=== PATIENT | male | born 1980 ===

== ENCOUNTER 2017-09-17 10:17 | Emergency (ER) | payer MEDICAID ==
[2017-09-17 10:49] VITALS: BP 117/82; PULSE 77; RESP 16; TEMP 97; O2SAT 100
--- NOTE | 2017-09-17 10:52 | ED PDOC ---
HPI: CCC, URI, Sore Throat Time Seen by Provider: 09/17/17 10:46 Chief Complaint (Nursing): Cough, Cold, Congestion History Per: Patient (Fever sore throat and cough x 2 days. No SOB) Onset/Duration Of Symptoms: Days (2) Current Symptoms Are (Timing): Still Present Location Of Pain: Throat Associated Symptoms: Fever, Sore Throat, Cough Severity: Moderate Past Medical History Vital Signs: Last Vital Signs Temp 97 F L 09/17/17 10:47 Pulse 77 09/17/17 10:47 Resp 16 09/17/17 10:47 BP 117/82 09/17/17 10:47 Pulse Ox 100 09/17/17 10:52 - Medical History PMH: Seizures - Family History Family History: States: Unknown Family Hx - Home Medications Home Medications: Ambulatory Orders Medication Instructions Recorded Azithromycin [Zithromax] 250 mg PO DAILY #6 tab 09/17/17 - Allergies Allergies/Adverse Reactions: Allergies Allergy/AdvReac Type Severity Reaction Status Date / Time No Known Allergies Allergy Verified 09/17/17 10:47 Review of Systems Constitutional: Positive for: Fever ENT: Positive for: Throat Pain Respiratory: Positive for: Cough Gastrointestinal: Negative for: Nausea, Vomiting Physical Exam - Physical Exam Appears: Positive for: Non-toxic, No Acute Distress Skin: Positive for: Normal Color, Warm, DRY ENT: Positive for: Pharyngeal Erythema. Negative for: Tonsillar Exudate Neck: Positive for: Normal, Painless ROM Cardiovascular/Chest: Positive for: Regular Rate, Rhythm Respiratory: Positive for: CNT, Normal Breath Sounds Extremity: Positive for: Normal ROM Neurologic/Psych: Positive for: Alert, Oriented - ECG O2 Sat by Pulse Oximetry: 100 Disposition - Clinical Impression Clinical Impression: Bronchitis - Patient ED Disposition Is Patient to be Admitted: No Counseled Patient/Family Regarding: Studies Performed, Diagnosis, Need For Followup, Rx Given - Disposition Referrals: [facility] [Outside] Disposition: Routine/Home Disposition Time: 11:45 Condition: FAIR Prescriptions: Azithromycin [Zithromax] 250 mg PO DAILY #6 tab Instructions: Acute Bronchitis (ED) Forms: [employer] (Occitan)
--- NOTE | 2017-09-17 11:22 | RAD ---
HISTORY: cough COMPARISON: None available. TECHNIQUE: Chest PA and lateral FINDINGS: LUNGS: No focal consolidation. Please note that chest x-ray has limited sensitivity for the detection of pulmonary masses. PLEURA: No significant pleural effusion identified. No definite pneumothorax . CARDIOVASCULAR: The cardiomediastinal silhouette appears within normal limits of size. OSSEOUS STRUCTURES: No acute osseous abnormality identified. VISUALIZED UPPER ABDOMEN: Unremarkable. OTHER FINDINGS: None. IMPRESSION: No focal consolidation, significant pleural effusion, or definite pneumothorax identified.
== END 2017-09-17 12:11 | disposition home or self-care (01) ==
LOC: H.ER 10:17
DX: J40 Bronchitis, not specified as acute or chronic (principal)

== ENCOUNTER 2018-04-05 21:49 | Emergency (ER) | payer MEDICAID ==
[2018-04-05 21:57] VITALS: BP 129/84; PULSE 71; RESP 16; TEMP 98.3; O2SAT 100
[2018-04-05] MEDS ORDERED: Tdap Vaccine 0.5 ml Vial (10-64 yrs) IM ONE ×2 (22:16→22:22)
[2018-04-05] MEDS ORDERED: Absorbable Gelatin Sponge Size 12-7 TP STA (22:16)
--- NOTE | 2018-04-05 22:16 | ED PDOC ---
HPI: Wound Care - HPI Time Seen by Provider: 04/05/18 21:58 Chief Complaint (Nursing): Finger,Hand,&Wrist Chief Complaint (Provider): skin avulsion History Per: Patient Additional Complaint(s): 37 year old right hand dominant male presents with avulsion laceration to right index finger. Patient states he was cutting onions with knife and accidentally cut right index finger. He is not sure of last tetanus. Patient has mild throbbing pain to affected area with no numbness or tingling to affected area. PMD: none Past Medical History Reviewed: Historical Data, Nursing Documentation, Vital Signs Vital Signs: Last Vital Signs Temp 98.3 F 04/05/18 21:55 Pulse 71 04/05/18 21:55 Resp 16 04/05/18 21:55 BP 129/84 04/05/18 21:55 Pulse Ox 100 04/05/18 21:55 - Medical History PMH: Seizures - Surgical History Surgical History: No Surg Hx - Family History Family History: States: No Known Family Hx - Living Arrangements Living Arrangements: With Family - Social History Current smoker - smoking cessation education provided: No Alcohol: None Drugs: Denies - Immunization History Hx Tetanus Toxoid Vaccination: No (not sure of last booster) - Home Medications Home Medications: Ambulatory Orders Medication Instructions Recorded Azithromycin [Zithromax] 250 mg PO DAILY #6 tab 09/17/17 - Allergies Allergies/Adverse Reactions: Allergies Allergy/AdvReac Type Severity Reaction Status Date / Time No Known Allergies Allergy Verified 09/17/17 10:47 Review of Systems ROS Statement: Except As Marked, All Systems Reviewed And Found Negative Musculoskeletal: Positive for: Other (right index finger laceration) Physical Exam - Reviewed Nursing Documentation Reviewed: Yes Vital Signs Reviewed: Yes - Physical Exam Appears: Positive for: Well, Non-toxic, No Acute Distress Skin: Negative for: Rash Eye Exam: Positive for: Normal appearance Extremity: Positive for: Other (1 cm avulsion laceration noted to right index finger, distal aspect of the fingernail is avulsed with exposure of the nailbed , no bony exposure, moderate active bleeding, normal distal sensation, full range of motion of affected digit) Neurologic/Psych: Positive for: Alert, Oriented - ECG O2 Sat by Pulse Oximetry: 100 Pulse Ox Interpretation: Normal Medical Decision Making Medical Decision Makin37 year old with avulsion to finger Plan: Adacel IM PO motrin Procedure Note: wound cleansed with normal saline, gel foam was applied overlying wound and secured with sterile gauze, N/V intact s/p placement. Procedure was tolerated well by patient with no complications. Patient was given wound care instructions given. Advised tylenol or advil prn pain. Disposition - Clinical Impression Clinical Impression: Skin avulsion, Nail avulsion, Requires a booster tetanus - Patient ED Disposition Is Patient to be Admitted: No Counseled Patient/Family Regarding: Diagnosis, Need For Followup, Rx Given - Disposition Referrals: [facility] [Outside] Disposition: Routine/Home Disposition Time: 23:01 Condition: STABLE Additional Instructions: Keep bandage in place for 2 days, after 2 days remove bandage and foam. Wound will continue to heal from there. Over the counter advil or tylenol for pain. Follow up with clinic. Instructions: Nail Avulsion, Diphtheria and Tetanus Toxoids, and Acellular Pertussis Vaccine, Skin Abrasions (DC) Forms: [employer] (Maltese)
[2018-04-05] MEDS ORDERED: Absorbable Gelatin Sponge Size 12-7 ONE ×2 (22:22→23:01)
== END 2018-04-05 23:20 | disposition home or self-care (01) ==
LOC: H.ER 21:49
DX: S61.210A Laceration without foreign body of right index finger without damage to nail, initial encounter (principal); W26.0XXA Contact with knife, initial encounter; Y92.89 Other specified places as the place of occurrence of the external cause

== ENCOUNTER 2018-05-17 04:42 | Inpatient (IN) | payer MEDICAID ==
[2018-05-17] MEDS ORDERED: Sodium Chloride 0.9% 1,000 ML IV STA (05:04)
--- NOTE | 2018-05-17 05:06 | ED PDOC ---
HPI: Seizure Time Seen by Provider: 05/17/18 04:45 Chief Complaint (Nursing): Seizure Chief Complaint (Provider): Seizure History Per: Other (A female on bedside) Associated Symptoms: Bit Tongue Additional Complaint(s): 37 years old male brought to the ED for evaluation of a seizure around 2:30 am while in bed. pt had generalized tonic clonic. Per female on bedside, patient has not had seizures in the past 4 years. Pt has been off meds for 2 weeks. She reports patient bit his tongue and denies hitting his head. PMD: Luis Weiss Past Medical History Reviewed: Historical Data, Nursing Documentation, Vital Signs Vital Signs: Last Vital Signs Temp 98.6 F 05/19/18 12:00 Pulse 87 05/19/18 12:00 Resp 13 05/19/18 12:00 BP 127/59 L 05/19/18 12:00 Pulse Ox 100 05/19/18 12:00 - Medical History PMH: Seizures - Surgical History Surgical History: No Surg Hx - Family History Family History: States: Unknown Family Hx - Social History Current smoker - smoking cessation education provided: No Alcohol: None Drugs: Denies - Immunization History Hx Tetanus Toxoid Vaccination: No (not sure of last booster) - Home Medications Home Medications: Ambulatory Orders Medication Instructions Recorded Oseltamivir [Tamiflu Cap] 75 mg PO BID cap 05/19/18 levETIRAcetam [Keppra] 500 mg PO Q12 tab 05/19/18 - Allergies Allergies/Adverse Reactions: Allergies Allergy/AdvReac Type Severity Reaction Status Date / Time No Known Allergies Allergy Verified 09/17/17 10:47 Review of Systems ROS Statement: Except As Marked, All Systems Reviewed And Found Negative Neurological: Positive for: Seizures Physical Exam - Reviewed Nursing Documentation Reviewed: Yes Vital Signs Reviewed: Yes - Physical Exam Appears: Positive for: Well (pt is post ictal somnolent, in no distress), Non- toxic, No Acute Distress Head Exam: Positive for: ATRAUMATIC, NORMAL INSPECTION, NORMOCEPHALIC Skin: Positive for: Normal Color, Warm, Dry Eye Exam: Positive for: Normal appearance ENT: Positive for: Other (one inch laceration underneath tongue on R side, and one inch laceration on top of tongue. not through and through. no active bleeding.) Neck: Positive for: Normal, Painless ROM Cardiovascular/Chest: Positive for: Regular Rate, Rhythm, Chest Non Tender Respiratory: Positive for: Normal Breath Sounds Gastrointestinal/Abdominal: Positive for: Normal Exam, Soft Extremity: Positive for: Normal ROM Neurologic/Psych: Positive for: Alert (somnolent), Other (Somnolent, postictal ) . Negative for: Oriented - Laboratory Results Result Diagrams: 05/19/18 04:20 05/19/18 04:20 - ECG O2 Sat by Pulse Oximetry: 98 (RA) Pulse Ox Interpretation: Normal - Critical Care Total Time (In Min): 30 Medical Decision Making Medical Decision Making: Time: 0500 Initial Plan: seizure, pt off medications, rule out infection vs electrolyte abnormality --CT Head W/O Contrast --Carbamazepine --CMP --CBC 0628 CT Head FINDINGS: Artifacts: There is a apparent collection along the RIGHT parietal convexity seen only on the coronal reformatted images and not present on the axial source images which is thought to represent artifact. Brain: Normal. No hemorrhage. No significant white matter disease. No edema. Ventricles: Normal. No ventriculomegaly. Bones/joints: Normal. No acute fracture. Soft tissues: Normal. Sinuses: Unremarkable as visualized. No acute sinusitis. Mastoid air cells: Unremarkable as visualized. No mastoid effusion. IMPRESSION: 1. No acute intracranial hemorrhage. 2. There is a apparent collection along the RIGHT parietal convexity seen only on the coronal reformatted images and not present on the axial source images which is thought to represent artifact. Dictated and Authenticated by: Rubén Jones MD 05/17/2018 6:28 AM Eastern Time ([place] & [place]) 0630 Patient is found with low CO2 and lactic acid of 5.4. on reevaluation of pt, Patient slightly awake now and capable of responding to commands reports he has not been taking his medications. Given the lactic acid level, patient needs code sepsis criteria. [id number] --Spoke to the hospitalist, who accepts patient in the ICU. Per patient's PMD is Luis Weiss, who is covered by Dr. Armas. --Dr. Armas, covering for Luis Weiss, accepts patient for admission and wants Dr. Beltran for ID. [id number] --Case discussed with Dr. Beltran, he will see the patient. --Dr. Galvan, neurology, called but did not call back. order for consult placed in computer. Ua negative for infection. pt likely had breakthrough seizure given non compliance w meds. Scribe Attestation: Documented by Dinora Garcia, acting as a scribe for Ab Bacon MD. Provider Scribe Attestation: All medical record entries made by the Scribe were at my direction and personally dictated by me. I have reviewed the chart and agree that the record accurately reflects my personal performance of the history, physical exam, medical decision making, and the department course for this patient. Disposition - Clinical Impression Clinical Impression: Seizure disorder - Patient ED Disposition Is Patient to be Admitted: Yes - Disposition Disposition Time: 06:30 Condition: GUARDED
[2018-05-17 05:16] LABS: BASO # 0.1 K/uL (0.0-0.2); BASO % 0.3 % (0.0-2.0); EOS # 0.6 K/uL (0.0-0.7); EOS % 3.2 % (0.0-4.0); LYMPH # 9.2 K/uL (1.0-4.3); LYMPH % 47.1 % (20.0-40.0); MEAN CELL VOLUME 97.7 fl (80.0-94.0); MEAN CORPUSCULAR HEMOGLOBIN 30.4 pg (27.0-31.0); MEAN CORPUSCULAR HGB CONC 31.2 g/dL (33.0-37.0); MEAN PLATELET VOLUME 9.2 fl (7.2-11.7); MONO # 1.3 K/uL (0.0-0.8); MONO % 6.9 % (0.0-10.0); NEUT # 8.3 K/uL (1.8-7.0); NEUT % 42.5 % (50.0-75.0); NRBC % 0.1 % (0.0-0.0); RBC 5.27 Mil/uL (4.40-5.90); RED CELL DISTRIBUTION WIDTH 13.7 % (11.5-14.5); WHITE BLOOD COUNT 19.5 K/uL (4.8-10.8)
[2018-05-17 06:07] LABS: ALB/GLOB RATIO 1.8 (1.0-2.1); ALBUMIN 5.6 g/dL (3.5-5.0); ALT/SGPT 28 U/L (21-72); AST/SGOT 51 U/L (17-59); BLOOD UREA NITROGEN 15 mg/dl (9-20); CALCIUM 9.9 mg/dL (8.4-10.2); GFR AFRICAN-AMERICAN > 60; GFR NON-AFRICAN AMERICAN > 60
[2018-05-17 06:23] LABS: ABG ALLEN TEST YES; ARTERIAL BLOOD GAS HCO3 15.9 mmol/L (21-28); ARTERIAL BLOOD GAS O2 SAT 97.4 % (95-98); ARTERIAL BLOOD GAS PCO2 35 mm/Hg (35-45); ARTERIAL BLOOD GAS PH 7.24 (7.35-7.45); ARTERIAL BLOOD GAS PO2 78 mm/Hg (80-100); ARTERIAL BLOOD GAS TCO2 16.1 mmol/L (22-28)
--- NOTE | 2018-05-17 06:50 | CP.PCM.CON ---
History of Present Illness - History of Present Illness History of Present Illness: Attending: Dr Quintero PMD: Luis Weiss MD Reason for consult: Critical Care management Chief Complaint: Seizure The patient was seen and examined in the ED HPI: The hx was obtained from the patient's and after review of the medial records. He is a 37 years old male with hx of Seizure for 11years on Tegretol, brought to the ED after having had 5 episodes of witnessed Tonic Clonic seizure while in bed. He did bite his tongue and had urinary incontinence. He ran out of Tegretol for one week, and has not had seizure in the past 4 years. PMH: Seizure PSH: No Surgical hx SH: Never Smoked; No Illegal drug use; No Alcohol use; Live with FH: Aunt with hx of seizure Allergies: NKDA Medication: Reviewed Review of Systems - Constitutional Constitutional: Headache. absent: Anorexia, Chills, Fever - EENT Eyes: Requires Corrective Lenses. absent: Blurred Vision, Diplopia, Floaters, Photophobia Ears: absent: Decreased Hearing, Ear Discharge, Tinnitus Nose/Mouth/Throat: absent: Epistaxis, Nasal Congestion, Sinus Pain, Sinus Pressure - Cardiovascular Cardiovascular: absent: Chest Pain, Dyspnea, Edema - Respiratory Respiratory: absent: Cough, Dyspnea, Wheezing, Stridor - Gastrointestinal Gastrointestinal: absent: Abdominal Pain, Constipation, Diarrhea, Nausea, Vomiting - Genitourinary Genitourinary: absent: Dysuria, Flank Pain, Urinary Frequency - Musculoskeletal Musculoskeletal: absent: Abnormal Gait, Arthralgias, Muscle Weakness - Integumentary Integumentary: absent: Pruritus, Rash, Skin Ulcer, Sores, Striae, Swelling - Neurological Neurological: absent: Confusion, Dizziness, Focal Weakness, Weakness - Psychiatric Psychiatric: absent: Anxiety, Depression, Panic Attacks - Endocrine Endocrine: absent: Palpitations, Polydipsia, Polyphagia, Polyuria - Hematologic/Lymphatic Hematologic: absent: Easy Bleeding, Easy Bruising Past Patient History - Past Medical History & Family History Past Medical History?: Yes - Past Social History Smoking Status: Never Smoked Chewing Tobacco Use: No Cigar Use: No Alcohol: None Drugs: Denies - CARDIAC Hx Cardiac Disorders: No - PULMONARY Hx Respiratory Disorders: No - NEUROLOGICAL Hx Neurological Disorder: Yes Hx Seizures: Yes - HEENT Hx HEENT Problems: No - RENAL Hx Chronic Kidney Disease: No - ENDOCRINE/METABOLIC Hx Endocrine Disorders: No - HEMATOLOGICAL/ONCOLOGICAL Hx Blood Disorders: No - INTEGUMENTARY Hx Dermatological Problems: No - MUSCULOSKELETAL/RHEUMATOLOGICAL Hx Musculoskeletal Disorders: No - GASTROINTESTINAL Hx Gastrointestinal Disorders: No - GENITOURINARY/GYNECOLOGICAL Hx Genitourinary Disorders: No - PSYCHIATRIC Hx Psychophysiologic Disorder: No Hx Substance Use: No - SURGICAL HISTORY Hx Surgeries: No - ANESTHESIA Hx Anesthesia: No Meds Allergies/Adverse Reactions: Allergies Allergy/AdvReac Type Severity Reaction Status Date / Time No Known Allergies Allergy Verified 09/17/17 10:47 - Medications Medications: Current Medications Lactated Ringer's 2,160 ml/ IV (SUPPLIES) 2,160 mls @ 4,354.5 mls/hr IV ONCE ONE PRN Reason: 60 ML/KG/HR Stop: 05/17/18 06:33 Last Admin: 05/17/18 06:43 Dose: 4,354.5 mls/hr Piperacillin Sod/Tazobactam (Sod 4.5 gm/ Sodium Chloride) 100 mls @ 100 mls/hr IVPB STAT STA PRN Reason: Protocol Stop: 05/17/18 07:45 Physical Exam - Constitutional Appears: No Acute Distress - Head Exam Head Exam: ATRAUMATIC, NORMAL INSPECTION, NORMOCEPHALIC - Eye Exam Eye Exam: EOMI, PERRL Pupil Exam: NORMAL ACCOMODATION, PERRL - ENT Exam ENT Exam: Mucous Membranes Moist, Normal Exam, Normal External Ear Exam Additional comments: laceration to left anterior tongue from bite. - Neck Exam Neck exam: Positive for: Full Rom, Normal Inspection, Tenderness - Respiratory Exam Respiratory Exam: Clear to Auscultation Bilateral. absent: Rales, Rhonchi, Wheezes - Cardiovascular Exam Cardiovascular Exam: REGULAR RHYTHM, RRR, +S1, +S2. absent: Gallop, JVD - GI/Abdominal Exam GI & Abdominal Exam: Normal Bowel Sounds, Soft. absent: Mass, Organomegaly, Tenderness - Rectal Exam Rectal Exam: Deferred - Extremities Exam Extremities exam: Positive for: full ROM, normal inspection. Negative for: calf tenderness, joint swelling, pedal edema - Back Exam Back exam: NORMAL INSPECTION. absent: CVA tenderness (L), CVA tenderness (R) - Neurological Exam Neurological exam: Alert, CN II-XII Intact, Oriented x3, Reflexes Normal - Psychiatric Exam Psychiatric exam: Normal Affect, Normal Mood - Skin Skin Exam: Dry, Intact, Normal Color, Warm Results - Vital Signs Recent Vital Signs: Last Vital Signs Temp 98.1 F 05/17/18 04:55 Pulse 96 H 05/17/18 06:21 Resp 23 05/17/18 06:21 BP 106/60 05/17/18 06:21 Pulse Ox 98 05/17/18 06:47 - Labs Result Diagrams: 05/17/18 05:11 05/17/18 05:11 Labs: Laboratory Results - last 24 hr 05/17/18 05/17/18 05/17/18 05:11 05:11 05:11 WBC 19.5 H RBC 5.27 Hgb 16.0 Hct 51.5 H MCV 97.7 H MCH 30.4 MCHC 31.2 L RDW 13.7 Plt Count 301 MPV 9.2 Neut % (Auto) 42.5 L Lymph % (Auto) 47.1 H [place] % (Auto) 6.9 Eos % (Auto) 3.2 Baso % (Auto) 0.3 Neut # (Auto) 8.3 H Lymph # (Auto) 9.2 H [place] # (Auto) 1.3 H Eos # (Auto) 0.6 Baso # (Auto) 0.1 pCO2 pO2 HCO3 ABG pH ABG Total CO2 ABG O2 Saturation ABG Base Excess Eder Test ABG Potassium A-a O2 Difference Glucose Lactate FiO2 Crit Value Called To Crit Value Called By Crit Value Read Back Blood Gas Notified Time Sodium 147 Potassium 4.1 Chloride 106 Carbon Dioxide < 5 L* Anion Gap 40 H BUN 15 Creatinine 1.1 Est GFR ( Amer) > 60 Est GFR (Non-Af Amer) > 60 Random Glucose 188 H Calcium 9.9 Total Bilirubin 0.3 AST 51 ALT 28 Alkaline Phosphatase 101 Total Protein 8.6 H Albumin 5.6 H Globulin 3.1 Albumin/Globulin Ratio 1.8 Arterial Blood Potassium Carbamazepine < 3.0 L 05/17/18 06:06 WBC RBC Hgb Hct MCV MCH MCHC RDW Plt Count MPV Neut % (Auto) Lymph % (Auto) [place] % (Auto) Eos % (Auto) Baso % (Auto) Neut # (Auto) Lymph # (Auto) [place] # (Auto) Eos # (Auto) Baso # (Auto) pCO2 35 pO2 78 L HCO3 15.9 L ABG pH 7.24 L ABG Total CO2 16.1 L ABG O2 Saturation 97.4 ABG Base Excess -11.4 L Eder Test Yes ABG Potassium 3.7 A-a O2 Difference 28.0 Glucose 155 H Lactate 5.4 H* FiO2 21.0 Crit Value Called To Dr crystal gonzales Crit Value Called By Mitch Crit Value Read Back Y Blood Gas Notified Time 623 Sodium 139.0 Potassium Chloride 108.0 H Carbon Dioxide Anion Gap BUN Creatinine Est GFR ( Amer) Est GFR (Non-Af Amer) Random Glucose Calcium Total Bilirubin AST ALT Alkaline Phosphatase Total Protein Albumin Globulin Albumin/Globulin Ratio Arterial Blood Potassium 3.7 Carbamazepine - Imaging and Cardiology CT scan - head Status: Image reviewed by me, Report reviewed by me Additional comment: EXAM: CT Head Without Intravenous Contrast EXAM DATE/TIME: Exam ordered 05/17/2018 5:01 AM FINDINGS: Artifacts: There is a apparent collection along the RIGHT parietal convexity seen only on the coronal reformatted images and not present on the axial source images which is thought to represent artifact. Brain: Normal. No hemorrhage. No significant white matter disease. No edema. Ventricles: Normal. No ventriculomegaly. Bones/joints: Normal. No acute fracture. Soft tissues: Normal. Sinuses: Unremarkable as visualized. No acute sinusitis. Mastoid air cells: Unremarkable as visualized. No mastoid effusion. IMPRESSION: 1. No acute intracranial hemorrhage. 2. There is a apparent collection along the RIGHT parietal convexity seen only on the coronal reformatted images and not present on the axial source images which is thought to represent artifact. Assessment & Plan - Assessment and Plan (Free Text) Assessment: #. Status Epileptics #. Metabolic Acidosis #. Leukocytosis #. Hyperglycemia Plan: 37 years old male with hx of Seizure for 11years on Tegretol, brought to the ED after having had 5 episodes of witnessed Tonic Clonic seizure while in bed. He did bite his tongue and had urinary incontinence. He ran out of Tegretol for one week, and has not had seizure in the past 4 years. #. Status Epileptics secondary to noncompliance in medication - Consult Dr Enamorado Neurologist - seizure precaution with bed rails up - Keppra 1g IV loading dose, then 500mg Q12H #. Lactic Acidosis - IV NS 2L given in ED - Continue with 200mls on NS/hr - Follow Lactic Acid #. Leukocytosis Probably reactive. Doubt Sepsis because of the leykocytosis and tachycardia with the elevated lactic acid which all could be a result of the Multiple seizures - Blood Culture - urinalysis and C&S - Patient given Zosyn in ES - Follow up CBC #. Hyperglycemia and Dehydration with the Hypernatremia, elevated Protein, albumen Magnesium and Phosphorous - follow electrolytes - IV fluids #. DVT prophylaxis with Lovenox #. Code Status: Full - Date & Time Date: 05/17/18 Time: 06:50
[2018-05-17] MEDS ORDERED: Piperacillin/Tazobact 4.5 GM in Sodium Chloride 0.9% 100 ML IVPB STA (06:54)
[2018-05-17 07:02] LABS: SQUAMOUS EPITHIAL < 1 /hpf (0-5); URINE BILIRUBIN NEGATIVE (NEGATIVE); URINE BLOOD MODERATE (NEGATIVE); URINE CLARITY SLIGHTY-CLOUDY (Clear); URINE COLOR STRAW (YELLOW); URINE GLUCOSE (UA) 50 mg/dL (Normal); URINE LEUKOCYTE ESTERASE NEG Leu/uL (Negative); URINE PROTEIN 30 mg/dL (NEGATIVE); URINE UROBILINOGEN 0.2-1.0 mg/dL (0.2-1.0)
[2018-05-17 07:25] LABS: BARBITURATES, UR NEGATIVE (NEGATIVE); BENZODIAZEPINES, UR NEGATIVE (NEGATIVE); OPIATES, UR NEGATIVE (NEGATIVE); PHENCYCLIDINE, UR NEGATIVE (NEGATIVE)
[2018-05-17 07:53] LABS: PROTHROMBIN TIME 11.2 Seconds (9.8-13.1)
[2018-05-17 07:54] LABS: PARTIAL THROMBOPLASTIN TIME 22.9 Seconds (25.6-37.1)
[2018-05-17] MEDS: Sodium Chloride 0.45% 1,000 ML IV SCH ×2 (08:00→13:11)
[2018-05-17] MEDS ORDERED: levETIRAcetam 1,000 MG in Sodium Chloride 0.9% 100 ML IVPB ONE (08:00)
[2018-05-17] MEDS ORDERED: Enoxaparin 40 mg Syringe SC SCH (09:00)
--- NOTE | 2018-05-17 09:16 | CARD ---
APPROVED REPORT EKG Measurement Heart [id number] <Conclusion> Normal sinus rhythm Normal ECG
--- NOTE | 2018-05-17 10:01 | CT ---
PROCEDURE: CT HEAD WITHOUT CONTRAST. HISTORY: seizure COMPARISON: None available. TECHNIQUE: Axial computed tomography images were obtained through the head/brain without intravenous contrast. Radiation dose: Total exam DLP = 984.66 mGy-cm. This CT exam was performed using one or more of the following dose reduction techniques: Automated exposure control, adjustment of the mA and/or kV according to patient size, and/or use of iterative reconstruction technique. FINDINGS: HEMORRHAGE: No intracranial hemorrhage. BRAIN: No mass effect or edema. No atrophy or chronic microvascular ischemic changes. VENTRICLES: Unremarkable. No hydrocephalus. CALVARIUM: Unremarkable. PARANASAL SINUSES: Unremarkable as visualized. No significant inflammatory changes. MASTOID AIR CELLS: Unremarkable as visualized. No inflammatory changes. OTHER FINDINGS: Apparent collection in the coronal images on the right parietal convexity has no corresponding findings on the axial images. This is likely an artifact. IMPRESSION: No CT evidence of acute intracranial hemorrhage or acute territorial infarct. Acute infarction may be CT occult within first 24 hours. If a focal deficit persists, consider followup CT or MRI for further evaluation. Likely artifactual demonstration of right parietal convexity only on coronal images. If indicated, repeat CT scan or MRI should be obtained. Please note that this report is in general agreement with the preliminary report provided by [facility].
--- NOTE | 2018-05-17 10:44 | CP.PCM.CON ---
History of Present Illness - History of Present Illness History of Present Illness: 37 years old male with hx of Seizure for 11years on Tegretol, brought to the ED after having had 5 episodes of witnessed Tonic Clonic seizure while in bed. He did bite his tongue and had urinary incontinence. He ran out of Tegretol for one week, and has not had seizure in the past 4 years. ID consulted for sepsis alert with fever tachycardia and elevated lactate PMH: Seizure PSH: No Surgical hx SH: Never Smoked; No Illegal drug use; No Alcohol use; Live with FH: Aunt with hx of seizure Allergies: NKDA Medication: Reviewed Review of Systems - Review of Systems Systems not reviewed;Unavailable: Altered Mental Status - Constitutional Constitutional: As Per HPI - EENT Eyes: absent: As Per HPI, Blind Spots, Blurred Vision, Change in Vision, Decreased Night Vision, Diplopia, Discharge, Dry Eye, Exophthalmos, Floaters, Irritation, Itchy Eyes, Loss of Peripheral Vision, Pain, Photophobia, Requires Corrective Lenses, Sees Flashes, Spots in Vision, Tunnel Vision, Other Visual Disturbances, Loss of Vision, Other Ears: absent: As Per HPI, Decreased Hearing, Ear Discharge, Ear Pain, Tinnitus, Abnormal Hearing, Disequilibrium, Dizziness, Other Nose/Mouth/Throat: absent: As Per HPI, Epistaxis, Nasal Congestion, Nasal Discharge, Nasal Obstruction, Nasal Trauma, Nose Pain, Post Nasal Drip, Sinus Pain, Sinus Pressure, Bleeding Gums, Change in Voice, Dental Pain, Dry Mouth, Dysphagia, Halitosis, Hoarsness, Lip Swelling, Mouth Lesions, Mouth Pain, Odynophagia, Sore Throat, Throat Swelling, Tongue Swelling, Facial Pain, Neck Pain, Neck Mass, Other - Cardiovascular Cardiovascular: absent: As Per HPI, Acrocyanosis, Chest Pain, Chest Pain at Rest , Chest Pain with Activity, Claudication, Diaphoresis, Dyspnea, Dyspnea on Exertion, Edema, Irregular Heart Rhythm, Pain Radiating to Arm/Neck/Jaw, Leg Edema, Leg Ulcers, Lightheadedness, Orthopnea, Palpitations, Paroxysmal Nocturnal Dyspnea, Pedal Edema, Radiating Pain, Rapid Heart Rate, Slow Heart Rate, Syncope, Other - Respiratory Respiratory: absent: As Per HPI, Cough, Dyspnea, Hemoptysis, Dyspnea on Exertion , Wheezing, Snoring, Stridor, Pain on Inspiration, Chest Congestion, Excessive Mucous Production, Change in Mucous Color, Pain with Coughing, Other - Gastrointestinal Gastrointestinal: absent: As Per HPI, Abdominal Pain, Belching, Bloating, Change in Bowel Habits, Change in Stool Character, Coffee Ground Emesis, Constipation, Cramping, Diarrhea, Dyspepsia, Dysphagia, Early Satiety, Excessive Flatus, Fecal Incontinence, Heartburn, Hematemesis, Hematochezia, Loose Stools, Melena, Nausea, Odynophagia, Temesmus, Vomiting, Other - Genitourinary Genitourinary: absent: As Per HPI, Change in Urinary Stream, Difficulty Urinating, Dysuria, Flank Pain, Hematuria, Pyuria, Nocturia, Urinary Incontinence, Urinary Frequency, Urinary Hesitance, Urinary Urgency, Voiding Freq/Small Amts, Freq UTI, Hx Renal/Bladder Calculi, Hx /Renal Surgery, Bladder Distension, Other - Musculoskeletal Musculoskeletal: absent: As Per HPI, Abnormal Gait, Arthralgias, Atrophy, Back Pain, Deformity, Joint Swelling, Limited Range of Motion, Loss of Height, Muscle Cramps, Muscle Weakness, Myalgias, Neck Pain, Numbness, Radiating Pain into Limb, Stiffness, Tingling, Other - Integumentary Integumentary: absent: As Per HPI, Acne, Alopecia, Bleeding Lesions, Change in Hair, Change in Nails, Change in Pigmentation, Changing Lesions, Dry Skin, Erythema, Furuncle, Hirsutism, Lesions, New Lesions, Non-Healing Lesions, Photosensitivity, Pruritus, Rash, Skin Pain, Skin Ulcer, Sores, Striae, Swelling , Unusual Bruising, Wounds, Jaundice, Other - Neurological Neurological: As Per HPI - Psychiatric Psychiatric: absent: As Per HPI, Abnormal Sleep Pattern, Anhedonia, Anxiety, Auditory Hallucinations, Behavioral Changes, Change in Appetite, Change in Libido, Confusion, Depression, Difficulty Concentrating, Hallucinations, Homicidal Ideation, Hopelessness, Irritability, Memory Loss, Mood Swings, Panic Attacks, Paranoia, Suicidal Ideation, Visual Hallucinations, Tactile Hallucinations, Other - Endocrine Endocrine: absent: As Per HPI, Change in Body Appearance, Change in Libido, Cold Intolorance, Deepening of Voice, Excessive Sweating, Fatigue, Flushing, Heat Intolorance, Increase in Ring/Shoe/Hat Size, Palpitations, Polydipsia, Polyphagia, Polyuria, Other - Hematologic/Lymphatic Hematologic: absent: As Per HPI, Easy Bleeding, Easy Bruising, Lymphadenopathy, Other Past Patient History - Past Medical History & Family History Past Medical History?: Yes - Past Social History Smoking Status: Never Smoked Chewing Tobacco Use: No Cigar Use: No Alcohol: None Drugs: Denies - CARDIAC Hx Cardiac Disorders: No - PULMONARY Hx Respiratory Disorders: No - NEUROLOGICAL Hx Neurological Disorder: Yes Hx Seizures: Yes - HEENT Hx HEENT Problems: No - RENAL Hx Chronic Kidney Disease: No - ENDOCRINE/METABOLIC Hx Endocrine Disorders: No - HEMATOLOGICAL/ONCOLOGICAL Hx Blood Disorders: No - INTEGUMENTARY Hx Dermatological Problems: No - MUSCULOSKELETAL/RHEUMATOLOGICAL Hx Musculoskeletal Disorders: No - GASTROINTESTINAL Hx Gastrointestinal Disorders: No - GENITOURINARY/GYNECOLOGICAL Hx Genitourinary Disorders: No - PSYCHIATRIC Hx Psychophysiologic Disorder: No Hx Substance Use: No - SURGICAL HISTORY Hx Surgeries: No - ANESTHESIA Hx Anesthesia: No Meds Allergies/Adverse Reactions: Allergies Allergy/AdvReac Type Severity Reaction Status Date / Time No Known Allergies Allergy Verified 09/17/17 10:47 - Medications Medications: Current Medications Sodium Chloride (Sodium Chloride 0.45%) 1,000 mls @ 200 mls/hr IV .Q5H [facility] Stop: 05/17/18 17:59 Last Admin: 05/17/18 08:00 Dose: 200 mls/hr Levetiracetam (Keppra) 500 mg PO Q12 [facility] Physical Exam - Constitutional Appears: No Acute Distress, Confused - Head Exam Head Exam: ATRAUMATIC, NORMAL INSPECTION, NORMOCEPHALIC - Eye Exam Eye Exam: EOMI, PERRL. absent: Scleral icterus - ENT Exam ENT Exam: Mucous Membranes Dry, Normal External Ear Exam, Normal Oropharynx - Neck Exam Neck exam: Negative for: Lymphadenopathy - Respiratory Exam Respiratory Exam: Decreased Breath Sounds, Rhonchi - Cardiovascular Exam Cardiovascular Exam: REGULAR RHYTHM, +S1, +S2 - GI/Abdominal Exam GI & Abdominal Exam: Diminished Bowel Sounds, Soft. absent: Tenderness - Rectal Exam Rectal Exam: Deferred - Exam Exam: NORMAL INSPECTION - Extremities Exam Extremities exam: Positive for: pedal pulses present. Negative for: calf tenderness, pedal edema, tenderness - Back Exam Back exam: absent: CVA tenderness (L), CVA tenderness (R), paraspinal tenderness - Neurological Exam Neurological exam: Alert, Altered, CN II-XII Intact, Reflexes Normal - Skin Skin Exam: Dry Results - Vital Signs Recent Vital Signs: Last Vital Signs Temp 98.2 F 05/17/18 08:25 Pulse 79 05/17/18 10:00 Resp 18 05/17/18 10:00 BP 101/61 05/17/18 10:00 Pulse Ox 98 05/17/18 10:00 - Labs Result Diagrams: 05/17/18 05:11 05/17/18 05:11 Labs: Laboratory Results - last 24 hr 05/17/18 05/17/18 05/17/18 05:11 05:11 05:11 WBC 19.5 H RBC 5.27 Hgb 16.0 Hct 51.5 H MCV 97.7 H MCH 30.4 MCHC 31.2 L RDW 13.7 Plt Count 301 MPV 9.2 Neut % (Auto) 42.5 L Lymph % (Auto) 47.1 H Thayer % (Auto) 6.9 Eos % (Auto) 3.2 Baso % (Auto) 0.3 Neut # (Auto) 8.3 H Lymph # (Auto) 9.2 H Thayer # (Auto) 1.3 H Eos # (Auto) 0.6 Baso # (Auto) 0.1 PT INR APTT pCO2 pO2 HCO3 ABG pH ABG Total CO2 ABG O2 Saturation ABG Base Excess Eder Test ABG Potassium A-a O2 Difference Glucose Lactate FiO2 Crit Value Called To Crit Value Called By Crit Value Read Back Blood Gas Notified Time Sodium 147 Potassium 4.1 Chloride 106 Carbon Dioxide < 5 L* Anion Gap 40 H BUN 15 Creatinine 1.1 Est GFR ( Amer) > 60 Est GFR (Non-Af Amer) > 60 Random Glucose 188 H Lactic Acid Calcium 9.9 Phosphorus Magnesium Total Bilirubin 0.3 AST 51 ALT 28 Alkaline Phosphatase 101 Troponin I Total Protein 8.6 H Albumin 5.6 H Globulin 3.1 Albumin/Globulin Ratio 1.8 Arterial Blood Potassium Urine Color Urine Clarity Urine pH Ur Specific [place] Urine Protein Urine Glucose (UA) Urine Ketones Urine Blood Urine Nitrate Urine Bilirubin Urine Urobilinogen Ur Leukocyte Esterase Urine RBC (Auto) Urine Microscopic WBC Ur Squamous Epith Cells Urine Opiates Screen Urine Methadone Screen Ur Barbiturates Screen Carbamazepine < 3.0 L Ur Phencyclidine Scrn Ur Amphetamines Screen U Benzodiazepines Scrn U Oth Cocaine Metabols U Cannabinoids Screen Alcohol, Quantitative 05/17/18 05/17/18 05/17/18 06:06 06:49 06:49 WBC RBC Hgb Hct MCV MCH MCHC RDW Plt Count MPV Neut % (Auto) Lymph % (Auto) Thayer % (Auto) Eos % (Auto) Baso % (Auto) Neut # (Auto) Lymph # (Auto) Thayer # (Auto) Eos # (Auto) Baso # (Auto) PT INR APTT pCO2 35 pO2 78 L HCO3 15.9 L ABG pH 7.24 L ABG Total CO2 16.1 L ABG O2 Saturation 97.4 ABG Base Excess -11.4 L Eder Test Yes ABG Potassium 3.7 A-a O2 Difference 28.0 Glucose 155 H Lactate 5.4 H* FiO2 21.0 Crit Value Called To Dr crystal gonzales Crit Value Called By Mitch Crit Value Read Back Y Blood Gas Notified Time 623 Sodium 139.0 Potassium Chloride 108.0 H Carbon Dioxide Anion Gap BUN Creatinine Est GFR ( Amer) Est GFR (Non-Af Amer) Random Glucose Lactic Acid Calcium Phosphorus Magnesium Total Bilirubin AST ALT Alkaline Phosphatase Troponin I Total Protein Albumin Globulin Albumin/Globulin Ratio Arterial Blood Potassium 3.7 Urine Color Straw Urine Clarity Slighty-cloudy Urine pH 5.0 Ur Specific [place] 1.012 Urine Protein 30 Urine Glucose (UA) 50 Urine Ketones Negative Urine Blood Moderate Urine Nitrate Negative Urine Bilirubin Negative Urine Urobilinogen 0.2-1.0 Ur Leukocyte Esterase Neg Urine RBC (Auto) < 1 Urine Microscopic WBC < 1 Ur Squamous Epith Cells < 1 Urine Opiates Screen Negative Urine Methadone Screen Negative Ur Barbiturates Screen Negative Carbamazepine Ur Phencyclidine Scrn Negative Ur Amphetamines Screen Negative U Benzodiazepines Scrn Negative U Oth Cocaine Metabols Negative U Cannabinoids Screen Negative Alcohol, Quantitative 05/17/18 05/17/18 05/17/18 06:55 07:10 08:57 WBC RBC Hgb Hct MCV MCH MCHC RDW Plt Count MPV Neut % (Auto) Lymph % (Auto) Thayer % (Auto) Eos % (Auto) Baso % (Auto) Neut # (Auto) Lymph # (Auto) Thayer # (Auto) Eos # (Auto) Baso # (Auto) PT 11.2 INR 1.0 APTT 22.9 L pCO2 pO2 HCO3 ABG pH ABG Total CO2 ABG O2 Saturation ABG Base Excess Eder Test ABG Potassium A-a O2 Difference Glucose Lactate FiO2 Crit Value Called To Crit Value Called By Crit Value Read Back Blood Gas Notified Time Sodium Potassium Chloride Carbon Dioxide Anion Gap BUN Creatinine Est GFR ( Amer) Est GFR (Non-Af Amer) Random Glucose Lactic Acid 1.2 Calcium Phosphorus 7.0 H Magnesium 2.9 H Total Bilirubin AST ALT Alkaline Phosphatase Troponin I < 0.0120 Total Protein Albumin Globulin Albumin/Globulin Ratio Arterial Blood Potassium Urine Color Urine Clarity Urine pH Ur Specific [place] Urine Protein Urine Glucose (UA) Urine Ketones Urine Blood Urine Nitrate Urine Bilirubin Urine Urobilinogen Ur Leukocyte Esterase Urine RBC (Auto) Urine Microscopic WBC Ur Squamous Epith Cells Urine Opiates Screen Urine Methadone Screen Ur Barbiturates Screen Carbamazepine Ur Phencyclidine Scrn Ur Amphetamines Screen U Benzodiazepines Scrn U Oth Cocaine Metabols U Cannabinoids Screen Alcohol, Quantitative < 10 Assessment & Plan (1) Fever Status: Acute (2) Seizures Status: Acute (3) Sepsis Status: Acute - Assessment and Plan (Free Text) Assessment: await cultures will send serologies consider neuro eval iv antibiotics
--- NOTE | 2018-05-17 10:59 | RAD ---
HISTORY: seizure COMPARISON: 09/17/2017 FINDINGS: LUNGS: Noted opacity in the right hilum as seen in the prior chest radiograph is less apparent on the current evaluation. This could be due to patient positioning. No other focal airspace opacity identified. PLEURA: No significant pleural effusion identified, no pneumothorax apparent. CARDIOVASCULAR: Stable cardiomediastinal silhouette. OSSEOUS STRUCTURES: No significant abnormalities. VISUALIZED UPPER ABDOMEN: Upper abdomen is suboptimally evaluated. OTHER FINDINGS: None. IMPRESSION: Noted opacity in the right hilum as seen in the prior chest radiograph is less apparent on the current evaluation. Repeat chest radiographs AP and lateral views should be obtained for evaluation. Alternatively, chest CT should be obtained. No other focal airspace opacity.
[2018-05-17 11:37] LABS: BASO % 0.1 % (0.0-2.0); HEMOGLOBIN 13.7 g/dL (12.0-18.0); LYMPH # 0.8 K/uL (1.0-4.3); LYMPH % 6.4 % (20.0-40.0); MEAN CORPUSCULAR HEMOGLOBIN 30.7 pg (27.0-31.0); MEAN CORPUSCULAR HGB CONC 34.1 g/dL (33.0-37.0); MEAN PLATELET VOLUME 8.4 fl (7.2-11.7); MONO % 8.7 % (0.0-10.0); NEUT # 10.1 K/uL (1.8-7.0); NEUT % 84.8 % (50.0-75.0); PLATELET COUNT 220 K/uL (130-400); RBC 4.47 Mil/uL (4.40-5.90); RED CELL DISTRIBUTION WIDTH 13.1 % (11.5-14.5); WHITE BLOOD COUNT 11.9 K/uL (4.8-10.8)
[2018-05-17 12:27] LABS: INFLUENZA A B POS FOR INFLUENZA B (NEGATIVE)
[2018-05-17] MEDS: cefTRIAXone 2 GM in Sodium Chloride 0.9% 100 ML IVPB SCH ×2 (13:07→22:12)
[2018-05-17 13:11] LABS: BANDS 1 % (0-2); LYMPHOCYTE 10 % (20-50); MONOCYTE 7 % (0-10); NEUTROPHIL 82 % (42-75); PLATELET ESTIMATE NORMAL (NORMAL); TOTAL CELLS COUNTED 100
--- NOTE | 2018-05-17 18:42 | PN ---
DATE: 05/17/2018 LOCATION: The patient in room ICU 434. TIME SPENT: 35 minutes. SUBJECTIVE: The patient is seen and evaluated at the bedside. PAST MEDICAL, PHYSICAL, FAMILY, AND SOCIAL HISTORY: Reviewed as documented in H and P. Events in ER noted. HISTORY OF PRESENT ILLNESS: A 37-year-old male with history of seizure disorder diagnosed at the age of 9 while the patient was in [place]. The patient was on seizure medications; however, has not had a seizure for the last four years. Apparently, became noncompliant with medications. The patient went to bed as usual after having had his dinner. Around 2:30, the patient was noted to have five episodes of tonic clonic seizure. The EMS was called, witnessed seizure by EMS, brought to emergency room, noted to be disoriented to name, place, and time. The patient was noted to have bleeding from his tongue, unclear urine or bowel incontinence. He had a CT of the head done in the ER, showed possible artifact involving the right frontal area. Blood sugar was normal, normal vital signs normal. The patient's preliminary lab data showed elevated white count, reduced CO2, he is on high lactate level. Code sepsis was called. The patient was given IV fluid at 2 L and started on Ringer's lactate at 200 mL, admitted to ICU. No seizure episode since the admission. ALLERGY STATUS: NONE. SOCIAL HISTORY: Denies drinking alcohol. No recreational drug use. No history of former trauma. PHYSICAL EXAMINATION: GENERAL: Young well-built male, oriented to name, but not to place or time. VITAL SIGNS: Temperature 98.2, heart rate 90, blood pressure 105/72, mean arterial pressure 83, respiratory rate of 17, saturating 97% on room air. Intake and output to be documented. Weight 160 pounds. HEAD, EYES, EARS, NOSE AND THROAT: Atraumatic and normocephalic. Pupils equal, round, and reactive to light and accommodation. Extraocular muscles are intact. Conjunctivae are pink. Sclerae white. Bite cota on the tongue with minimal bleeding. NECK: Supple. CHEST: Bilateral breath sounds. Clear to auscultation. HEART: Rhythm regular. S1 and S2 normal in intensity. No S3, S4, gallop. No audible murmur. ABDOMEN: Bowel sounds present, soft. Liver and spleen not palpable. Bladder not distended. EXTREMITIES: Unremarkable. NEUROLOGIC: Oriented to name, but not to place and time. Moves all four extremities. Deep tendon reflexes are 2+ plantar, normal flexor. LABORATORY DATA: Urinalysis is negative. SMA-7; sodium 140, potassium 4.1, chloride 106, CO2 of 5. Blood, urea, and nitrogen 15, creatinine of 1.1. Random glucose 188. Lactic acid repeat 1.2. Phosphorus 7, magnesium 2.9, total bilirubin 0.3, AST 51, ALT 28, alkaline phosphatase 101, troponin less than 0.012, total protein 8.6, and albumin 5.6. Repeat potassium 3.7. VBG showed lactate level 5.4 on admission to the ER. PT and PTT are normal. WBC 19, hemoglobin 16, hematocrit 51.5, MCV 97.7, and platelet count of 301. phos is 47.1, and monocytes 6.9. Urine drug screen, carbamazepine level less than 3, negative for opiates, methadone, amphetamine, benzodiazepine, and cocaine. CURRENT MEDICATIONS: Include sodium chloride at 100 mL per hour, Keppra 500 mg p.o. every 12 hours, status post a dose of Zosyn. IMPRESSION AND PLAN: 1. Neurologic: Postictal encephalopathy, status post epilepticus, resolving. No history of trauma to the head in the past. Denies any head injury, likely noncompliant with anti-seizure medications. We will continue with Keppra 500 mg every 12 hours. Closely monitor for further seizure. Neurology consult on both. 2. Lactic acidosis secondary to seizure, resolving after hydration with normal saline. 3. Leukocytosis is probably reactive, likely related to sepsis. We will follow trending leukocytosis. 4. Hyperglycemia and dehydration with the hypernatremia, elevated protein, albumin, magnesium, and phosphorus level to follow. 5. Deep vein thrombosis prophylaxis with mechanical device. Hold Lovenox until bleeding from the tongue is controlled. Sundeep Baig MD
[2018-05-17 20:20] LABS: STREP PNEUMONIAE NEGATIVE (NEGATIVE); STREPTOCOCCUS B NEGATIVE (NEGATIVE)
[2018-05-17 20:23] LABS: N MENINGITIS ACY/W135 NEGATIVE (NEGATIVE); N MENINGITIS B/ECOLI K1 NEGATIVE (NEGATIVE)
[2018-05-18 05:38] LABS: BASO % 0.2 % (0.0-2.0); EOS % 0.3 % (0.0-4.0); LYMPH # 1.9 K/uL (1.0-4.3); LYMPH % 19.9 % (20.0-40.0); MEAN CELL VOLUME 91.4 fl (80.0-94.0); MEAN CORPUSCULAR HEMOGLOBIN 30.7 pg (27.0-31.0); MEAN CORPUSCULAR HGB CONC 33.5 g/dL (33.0-37.0); MEAN PLATELET VOLUME 8.7 fl (7.2-11.7); MONO # 1.1 K/uL (0.0-0.8); MONO % 11.8 % (0.0-10.0); NEUT # 6.4 K/uL (1.8-7.0); NEUT % 67.8 % (50.0-75.0); RBC 4.25 Mil/uL (4.40-5.90); RED CELL DISTRIBUTION WIDTH 13.2 % (11.5-14.5); WHITE BLOOD COUNT 9.5 K/uL (4.8-10.8)
[2018-05-18 05:55] LABS: ALB/GLOB RATIO 1.5 (1.0-2.1); ALBUMIN 3.8 g/dL (3.5-5.0); ALT/SGPT 40 U/L (21-72); AST/SGOT 70 U/L (17-59); BLOOD UREA NITROGEN 10 mg/dl (9-20); CALCIUM 8.3 mg/dL (8.4-10.2); GFR AFRICAN-AMERICAN > 60; GFR NON-AFRICAN AMERICAN > 60
--- NOTE | 2018-05-18 09:51 | CP.CCUPN ---
CCU Subjective - Physician Review Events Since Last Encounter (Free Text): 05/18/18 10:20 The patient was Seen/interviewed and examined by me at the bedside, Medical records reviewed and Management issues were discussed and formulated with the house staff. Events reviewed Pt AAO x3, comfortable, NAD Breathing unlabored, on room air O2 sat 100%. No seizures since admission Denies any chest pain, SOB or Palpitations Afebrile, NSR on the monitor CCU Objective - Vital Signs / Intake & Output Vital Signs (Last 4 hours): Vital Signs Temp Pulse Resp BP Pulse Ox 05/18/18 09:00 75 19 107/60 99 05/18/18 08:00 99.0 F 72 12 112/71 99 05/18/18 06:23 69 13 110/72 100 05/18/18 06:00 14 L 12 116/84 98 Intake and Output (Last 8hrs): Intake & Output 05/17/18 05/18/18 05/18/18 22:59 06:59 14:59 Intake Total 2250 350 120 Output Total 300 600 Balance 1950 -250 120 Intake: IV 2200 Intake, Piggyback 100 Oral 50 250 120 Output: Urine 300 600 Urine, Voided 300 600 Other: # Voids Urine, Voided 2 2 - Physical Exam Head: Positive for: Atraumatic, Normocephalic Pupils: Positive for: PERRL Extroacular Muscles: Positive for: EOMI Conjunctiva: Positive for: Normal Mouth: Positive for: Moist Mucous Membranes Nose (Internal): Positive for: Normal Inspection Neck: Positive for: Normal Range of Motion, Trachea Midline. Negative for: Meningeal Signs, MIDLINE TENDERNESS, Paraspinal Tenderness, JVD, Lymphadenopathy , Bruit, Other Respiratory/Chest: Positive for: Clear to Auscultation, Good Air Exchange. Negative for: Respiratory Distress, Accessory Muscle Use, Wheezes, Rales, Retracting, Rhonchi Cardiovascular: Positive for: Regular Rate and Rhythm, Normal S1, S2, Peripheal Pulses Present. Negative for: Murmurs, Tachycardic, Bradycardic Abdomen: Positive for: Normal Bowel Sounds. Negative for: Tenderness, Distention Neurological: Positive for: GCS=15, CN II-XII Intact, Speech Normal, Motor Func Grossly Intact, Normal Sensory Function - Medications Active Medications: Active Medications Generic Name Dose Route Start Last Admin Trade Name Freq PRN Reason Stop Dose Admin Ceftriaxone Sodium 2 gm/ 100 mls @ 0 mls/hr 05/17/18 11:00 05/17/18 22:12 Sodium Chloride IVPB 100 mls/hr Q12H RY Administration Protocol Levetiracetam 500 mg 05/17/18 21:00 05/18/18 08:31 Keppra PO 500 mg Q12 RY Administration Ondansetron HCl 4 mg 05/17/18 14:28 05/17/18 14:46 Zofran Inj IVP 4 mg Q6 PRN Administration Nausea/Vomiting Oseltamivir Phosphate 75 mg 05/17/18 17:00 05/18/18 08:31 Tamiflu Cap PO 05/22/18 17:00 75 mg BID RY Administration Protocol Pantoprazole Sodium 40 mg 05/17/18 14:30 05/18/18 08:31 Protonix Inj IVP 40 mg DAILY RY Administration - Patient Studies Lab Studies: Microbiology Studies 05/17/18 06:49 Urine Culture - Final Urine No Growth (<1,000 CFU/ML) 05/17/18 07:28 Blood Culture - Preliminary Blood-Venous NO GROWTH AFTER 24 HOURS 05/17/18 06:55 Blood Culture - Preliminary Blood-Venous NO GROWTH AFTER 24 HOURS Lab Studies 05/18/18 05/18/18 05/17/18 Range/Units 04:50 04:50 11:30 WBC 9.5 (4.8-10.8) K/uL RBC 4.25 L (4.40-5.90) Mil/uL Hgb 13.0 (12.0-18.0) g/dL Hct 38.8 (35.0-51.0) % MCV 91.4 (80.0-94.0) fl MCH 30.7 (27.0-31.0) pg MCHC 33.5 (33.0-37.0) g/dL RDW 13.2 (11.5-14.5) % Plt Count 203 (130-400) K/uL MPV 8.7 (7.2-11.7) fl Neut % (Auto) 67.8 (50.0-75.0) % Lymph % (Auto) 19.9 L (20.0-40.0) % [place] % (Auto) 11.8 H (0.0-10.0) % Eos % (Auto) 0.3 (0.0-4.0) % Baso % (Auto) 0.2 (0.0-2.0) % Neut # (Auto) 6.4 (1.8-7.0) K/uL Lymph # (Auto) 1.9 (1.0-4.3) K/uL [place] # (Auto) 1.1 H (0.0-0.8) K/uL Eos # (Auto) 0.0 (0.0-0.7) K/uL Baso # (Auto) 0.0 (0.0-0.2) K/uL Neutrophils % (Manual) (42-75) % Band Neutrophils % (0-2) % Lymphocytes % (Manual) (20-50) % Monocytes % (Manual) (0-10) % Platelet Estimate (NORMAL) RBC Morphology (NORMAL) Sodium 144 (132-148) mmol/l Potassium 3.4 L (3.6-5.0) MMOL/L Chloride 108 H (98-107) mmol/L Carbon Dioxide 24 (22-30) mmol/L Anion Gap 15 (10-20) BUN 10 (9-20) mg/dl Creatinine 1.1 (0.8-1.5) mg/dl Est GFR ( Amer) > 60 Est GFR (Non-Af Amer) > 60 Random Glucose 98 (75-110) mg/dL Lactic Acid (0.7-2.1) MMOL/L Calcium 8.3 L (8.4-10.2) mg/dL Total Bilirubin 0.4 (0.2-1.3) mg/dl AST 70 H D (17-59) U/L ALT 40 (21-72) U/L Alkaline Phosphatase 63 (38-126) U/L Total Protein 6.3 (6.3-8.2) G/DL Albumin 3.8 (3.5-5.0) g/dL Globulin 2.6 (2.2-3.9) gm/dL Albumin/Globulin Ratio 1.5 (1.0-2.1) Procalcitonin (0.19-0.49) NG/ML HIV 1&2 Antibody Screen (NEGATIVE) Influenza Typ A,B (EIA) Pos for influenza b H (NEGATIVE) H.influenzae Type B Ag (NEGATIVE) N.meningitidis ACY/W135 (NEGATIVE) N.meningi B/E.coli K1 Ag (NEGATIVE) Grp A Beta Strep Ag Negative (NEGATIVE) Group B Strep Antigen (NEGATIVE) S. pneumoniae Antigen (NEGATIVE) 05/17/18 05/17/18 05/17/18 Range/Units 11:28 11:28 11:28 WBC (4.8-10.8) K/uL RBC (4.40-5.90) Mil/uL Hgb (12.0-18.0) g/dL Hct (35.0-51.0) % MCV (80.0-94.0) fl MCH (27.0-31.0) pg MCHC (33.0-37.0) g/dL RDW (11.5-14.5) % Plt Count (130-400) K/uL MPV (7.2-11.7) fl Neut % (Auto) (50.0-75.0) % Lymph % (Auto) (20.0-40.0) % [place] % (Auto) (0.0-10.0) % Eos % (Auto) (0.0-4.0) % Baso % (Auto) (0.0-2.0) % Neut # (Auto) (1.8-7.0) K/uL Lymph # (Auto) (1.0-4.3) K/uL [place] # (Auto) (0.0-0.8) K/uL Eos # (Auto) (0.0-0.7) K/uL Baso # (Auto) (0.0-0.2) K/uL Neutrophils % (Manual) (42-75) % Band Neutrophils % (0-2) % Lymphocytes % (Manual) (20-50) % Monocytes % (Manual) (0-10) % Platelet Estimate (NORMAL) RBC Morphology (NORMAL) Sodium (132-148) mmol/l Potassium (3.6-5.0) MMOL/L Chloride (98-107) mmol/L Carbon Dioxide (22-30) mmol/L Anion Gap (10-20) BUN (9-20) mg/dl Creatinine (0.8-1.5) mg/dl Est GFR ( Amer) Est GFR (Non-Af Amer) Random Glucose (75-110) mg/dL Lactic Acid 1.7 (0.7-2.1) MMOL/L Calcium (8.4-10.2) mg/dL Total Bilirubin (0.2-1.3) mg/dl AST (17-59) U/L ALT (21-72) U/L Alkaline Phosphatase (38-126) U/L Total Protein (6.3-8.2) G/DL Albumin (3.5-5.0) g/dL Globulin (2.2-3.9) gm/dL Albumin/Globulin Ratio (1.0-2.1) Procalcitonin 0.31 (0.19-0.49) NG/ML HIV 1&2 Antibody Screen Negative (NEGATIVE) Influenza Typ A,B (EIA) (NEGATIVE) H.influenzae Type B Ag Negative (NEGATIVE) N.meningitidis ACY/W135 Negative (NEGATIVE) N.meningi B/E.coli K1 Ag Negative (NEGATIVE) Grp A Beta Strep Ag (NEGATIVE) Group B Strep Antigen Negative (NEGATIVE) S. pneumoniae Antigen Negative (NEGATIVE) 05/17/18 Range/Units 11:20 WBC 11.9 H (4.8-10.8) K/uL RBC 4.47 (4.40-5.90) Mil/uL Hgb 13.7 D (12.0-18.0) g/dL Hct 40.2 (35.0-51.0) % MCV 90.0 D (80.0-94.0) fl MCH 30.7 (27.0-31.0) pg MCHC 34.1 (33.0-37.0) g/dL RDW 13.1 (11.5-14.5) % Plt Count 220 (130-400) K/uL MPV 8.4 (7.2-11.7) fl Neut % (Auto) 84.8 H (50.0-75.0) % Lymph % (Auto) 6.4 L (20.0-40.0) % [place] % (Auto) 8.7 (0.0-10.0) % Eos % (Auto) 0.0 (0.0-4.0) % Baso % (Auto) 0.1 (0.0-2.0) % Neut # (Auto) 10.1 H (1.8-7.0) K/uL Lymph # (Auto) 0.8 L (1.0-4.3) K/uL [place] # (Auto) 1.0 H (0.0-0.8) K/uL Eos # (Auto) 0.0 (0.0-0.7) K/uL Baso # (Auto) 0.0 (0.0-0.2) K/uL Neutrophils % (Manual) 82 H (42-75) % Band Neutrophils % 1 (0-2) % Lymphocytes % (Manual) 10 L (20-50) % Monocytes % (Manual) 7 (0-10) % Platelet Estimate Normal (NORMAL) RBC Morphology Normal (NORMAL) Sodium (132-148) mmol/l Potassium (3.6-5.0) MMOL/L Chloride (98-107) mmol/L Carbon Dioxide (22-30) mmol/L Anion Gap (10-20) BUN (9-20) mg/dl Creatinine (0.8-1.5) mg/dl Est GFR ( Amer) Est GFR (Non-Af Amer) Random Glucose (75-110) mg/dL Lactic Acid (0.7-2.1) MMOL/L Calcium (8.4-10.2) mg/dL Total Bilirubin (0.2-1.3) mg/dl AST (17-59) U/L ALT (21-72) U/L Alkaline Phosphatase (38-126) U/L Total Protein (6.3-8.2) G/DL Albumin (3.5-5.0) g/dL Globulin (2.2-3.9) gm/dL Albumin/Globulin Ratio (1.0-2.1) Procalcitonin (0.19-0.49) NG/ML HIV 1&2 Antibody Screen (NEGATIVE) Influenza Typ A,B (EIA) (NEGATIVE) H.influenzae Type B Ag (NEGATIVE) N.meningitidis ACY/W135 (NEGATIVE) N.meningi B/E.coli K1 Ag (NEGATIVE) Grp A Beta Strep Ag (NEGATIVE) Group B Strep Antigen (NEGATIVE) S. pneumoniae Antigen (NEGATIVE) Laboratory Results - last 24 hr 05/17/18 05/17/18 05/17/18 11:20 11:28 11:28 WBC 11.9 H RBC 4.47 Hgb 13.7 D Hct 40.2 MCV 90.0 D MCH 30.7 MCHC 34.1 RDW 13.1 Plt Count 220 MPV 8.4 Neut % (Auto) 84.8 H Lymph % (Auto) 6.4 L [place] % (Auto) 8.7 Eos % (Auto) 0.0 Baso % (Auto) 0.1 Neut # (Auto) 10.1 H Lymph # (Auto) 0.8 L [place] # (Auto) 1.0 H Eos # (Auto) 0.0 Baso # (Auto) 0.0 Neutrophils % (Manual) 82 H Band Neutrophils % 1 Lymphocytes % (Manual) 10 L Monocytes % (Manual) 7 Platelet Estimate Normal RBC Morphology Normal Sodium Potassium Chloride Carbon Dioxide Anion Gap BUN Creatinine Est GFR ( Amer) Est GFR (Non-Af Amer) Random Glucose Lactic Acid 1.7 Calcium Total Bilirubin AST ALT Alkaline Phosphatase Total Protein Albumin Globulin Albumin/Globulin Ratio Procalcitonin 0.31 HIV 1&2 Antibody Screen Influenza Typ A,B (EIA) H.influenzae Type B Ag Negative N.meningitidis ACY/W135 Negative N.meningi B/E.coli K1 Ag Negative Grp A Beta Strep Ag Group B Strep Antigen Negative S. pneumoniae Antigen Negative 05/17/18 05/17/18 05/18/18 11:28 11:30 04:50 WBC 9.5 RBC 4.25 L Hgb 13.0 Hct 38.8 MCV 91.4 MCH 30.7 MCHC 33.5 RDW 13.2 Plt Count 203 MPV 8.7 Neut % (Auto) 67.8 Lymph % (Auto) 19.9 L [place] % (Auto) 11.8 H Eos % (Auto) 0.3 Baso % (Auto) 0.2 Neut # (Auto) 6.4 Lymph # (Auto) 1.9 [place] # (Auto) 1.1 H Eos # (Auto) 0.0 Baso # (Auto) 0.0 Neutrophils % (Manual) Band Neutrophils % Lymphocytes % (Manual) Monocytes % (Manual) Platelet Estimate RBC Morphology Sodium Potassium Chloride Carbon Dioxide Anion Gap BUN Creatinine Est GFR ( Amer) Est GFR (Non-Af Amer) Random Glucose Lactic Acid Calcium Total Bilirubin AST ALT Alkaline Phosphatase Total Protein Albumin Globulin Albumin/Globulin Ratio Procalcitonin HIV 1&2 Antibody Screen Negative Influenza Typ A,B (EIA) Pos for influenza b H H.influenzae Type B Ag N.meningitidis ACY/W135 N.meningi B/E.coli K1 Ag Grp A Beta Strep Ag Negative Group B Strep Antigen S. pneumoniae Antigen 05/18/18 04:50 WBC RBC Hgb Hct MCV MCH MCHC RDW Plt Count MPV Neut % (Auto) Lymph % (Auto) [place] % (Auto) Eos % (Auto) Baso % (Auto) Neut # (Auto) Lymph # (Auto) [place] # (Auto) Eos # (Auto) Baso # (Auto) Neutrophils % (Manual) Band Neutrophils % Lymphocytes % (Manual) Monocytes % (Manual) Platelet Estimate RBC Morphology Sodium 144 Potassium 3.4 L Chloride 108 H Carbon Dioxide 24 Anion Gap 15 BUN 10 Creatinine 1.1 Est GFR ( Amer) > 60 Est GFR (Non-Af Amer) > 60 Random Glucose 98 Lactic Acid Calcium 8.3 L Total Bilirubin 0.4 AST 70 H D ALT 40 Alkaline Phosphatase 63 Total Protein 6.3 Albumin 3.8 Globulin 2.6 Albumin/Globulin Ratio 1.5 Procalcitonin HIV 1&2 Antibody Screen Influenza Typ A,B (EIA) H.influenzae Type B Ag N.meningitidis ACY/W135 N.meningi B/E.coli K1 Ag Grp A Beta Strep Ag Group B Strep Antigen S. pneumoniae Antigen Fingerstick Blood Sugar Results: 158 Review of Systems - Cardiovascular Cardiovascular: absent: Chest Pain, Chest Pain at Rest, Chest Pain with Activity , Diaphoresis - Respiratory Respiratory: absent: Cough, Dyspnea, Hemoptysis, Dyspnea on Exertion, Wheezing - Neurological Neurological: absent: Convulsions, Dizziness, Numbness, Focal Weakness, Headaches, Lack of Coordination, Loss of Vision, Syncope, Tingling, Tremor, Vertigo, Weakness Critical Care Progress Note - Extremities/Vascular Does the Patient have a Central Venous Catheter?: No Does the Patient need a Central Venous Catheter?: No Does the Patient have a Ridley Catheter?: No Does the Patient need a Ridley Catheter?: No - Nutrition Nutrition: Nutrition Category Date Time Status Regular Diet [DIET] Diets 05/17/18 Breakfast Active Assessment/Plan (1) Seizures Current Visit: Yes Status: Acute Priority: High Comment: Status Epileptics secondary to noncompliance in medication Neurology Consult Seizure precaution Keppra 500mg Q12H (2) Sepsis Current Visit: Yes Status: Acute Priority: High Comment: Blood and Urine C/S negative Discontinue IV Zosyn Tamiflu 75 mo PO BID ID consult appretiated (3) Fever Current Visit: Yes Status: Acute Priority: High
[2018-05-18] MEDS: cefTRIAXone 2 GM in Sodium Chloride 0.9% 100 ML IVPB SCH ×2 (10:12→22:03)
--- NOTE | 2018-05-18 11:01 | CP.PCM.HP ---
History of Present Illness - History of Present Illness History of Present Illness: This is a 37 y/o male admitted for witnessed generalized tonic clonic seizure which happened around 2:30 while in bed. It was associated with loss of consciousness, tongue biting and and upward rolling of eyeballs. There was no fever. Initial work up at the ER showed an elevated WBC of 19.5. Patient has a hx of seizure for many years. He has been on Tegretol. His last seizure episode was 4 years ago. Present on Admission - Present on Admission Any Indicators Present on Admission: No History of DVT/PE: No History of Uncontrolled Diabetes: No Urinary Catheter: No Decubitus Ulcer Present: No Past Patient History - Past Medical History & Family History Past Medical History?: Yes - Past Social History Smoking Status: Never Smoked Chewing Tobacco Use: No Cigar Use: No Alcohol: None Drugs: Denies - CARDIAC Hx Cardiac Disorders: No - PULMONARY Hx Respiratory Disorders: No - NEUROLOGICAL Hx Neurological Disorder: Yes Hx Seizures: Yes - HEENT Hx HEENT Problems: No - RENAL Hx Chronic Kidney Disease: No - ENDOCRINE/METABOLIC Hx Endocrine Disorders: No - HEMATOLOGICAL/ONCOLOGICAL Hx Blood Disorders: No - INTEGUMENTARY Hx Dermatological Problems: No - MUSCULOSKELETAL/RHEUMATOLOGICAL Hx Musculoskeletal Disorders: No - GASTROINTESTINAL Hx Gastrointestinal Disorders: No - GENITOURINARY/GYNECOLOGICAL Hx Genitourinary Disorders: No - PSYCHIATRIC Hx Psychophysiologic Disorder: No Hx Substance Use: No - SURGICAL HISTORY Hx Surgeries: No - ANESTHESIA Hx Anesthesia: No Meds Allergies/Adverse Reactions: Allergies Allergy/AdvReac Type Severity Reaction Status Date / Time No Known Allergies Allergy Verified 09/17/17 10:47 Physical Exam - Head Exam Head Exam: NORMAL INSPECTION - Eye Exam Eye Exam: Normal appearance - Respiratory Exam Respiratory Exam: Clear to Auscultation Bilateral - Cardiovascular Exam Cardiovascular Exam: REGULAR RHYTHM - GI/Abdominal Exam GI & Abdominal Exam: Normal Bowel Sounds - Neurological Exam Neurological exam: Altered, CN II-XII Intact Results - Vital Signs Recent Vital Signs: Last Vital Signs Temp 99.0 F 05/18/18 08:00 Pulse 75 05/18/18 09:00 Resp 19 05/18/18 09:00 BP 107/60 05/18/18 09:00 Pulse Ox 99 05/18/18 09:00 - Labs Result Diagrams: 05/18/18 04:50 05/18/18 04:50 Labs: Laboratory Results - last 24 hr 05/17/18 05/17/18 05/17/18 11:20 11:28 11:28 WBC 11.9 H RBC 4.47 Hgb 13.7 D Hct 40.2 MCV 90.0 D MCH 30.7 MCHC 34.1 RDW 13.1 Plt Count 220 MPV 8.4 Neut % (Auto) 84.8 H Lymph % (Auto) 6.4 L [place] % (Auto) 8.7 Eos % (Auto) 0.0 Baso % (Auto) 0.1 Neut # (Auto) 10.1 H Lymph # (Auto) 0.8 L [place] # (Auto) 1.0 H Eos # (Auto) 0.0 Baso # (Auto) 0.0 Neutrophils % (Manual) 82 H Band Neutrophils % 1 Lymphocytes % (Manual) 10 L Monocytes % (Manual) 7 Platelet Estimate Normal RBC Morphology Normal Sodium Potassium Chloride Carbon Dioxide Anion Gap BUN Creatinine Est GFR ( Amer) Est GFR (Non-Af Amer) Random Glucose Lactic Acid 1.7 Calcium Total Bilirubin AST ALT Alkaline Phosphatase Total Protein Albumin Globulin Albumin/Globulin Ratio Procalcitonin 0.31 HIV 1&2 Antibody Screen Influenza Typ A,B (EIA) H.influenzae Type B Ag Negative N.meningitidis ACY/W135 Negative N.meningi B/E.coli K1 Ag Negative Grp A Beta Strep Ag Group B Strep Antigen Negative S. pneumoniae Antigen Negative 05/17/18 05/17/18 05/18/18 11:28 11:30 04:50 WBC 9.5 RBC 4.25 L Hgb 13.0 Hct 38.8 MCV 91.4 MCH 30.7 MCHC 33.5 RDW 13.2 Plt Count 203 MPV 8.7 Neut % (Auto) 67.8 Lymph % (Auto) 19.9 L [place] % (Auto) 11.8 H Eos % (Auto) 0.3 Baso % (Auto) 0.2 Neut # (Auto) 6.4 Lymph # (Auto) 1.9 [place] # (Auto) 1.1 H Eos # (Auto) 0.0 Baso # (Auto) 0.0 Neutrophils % (Manual) Band Neutrophils % Lymphocytes % (Manual) Monocytes % (Manual) Platelet Estimate RBC Morphology Sodium Potassium Chloride Carbon Dioxide Anion Gap BUN Creatinine Est GFR ( Amer) Est GFR (Non-Af Amer) Random Glucose Lactic Acid Calcium Total Bilirubin AST ALT Alkaline Phosphatase Total Protein Albumin Globulin Albumin/Globulin Ratio Procalcitonin HIV 1&2 Antibody Screen Negative Influenza Typ A,B (EIA) Pos for influenza b H H.influenzae Type B Ag N.meningitidis ACY/W135 N.meningi B/E.coli K1 Ag Grp A Beta Strep Ag Negative Group B Strep Antigen S. pneumoniae Antigen 05/18/18 04:50 WBC RBC Hgb Hct MCV MCH MCHC RDW Plt Count MPV Neut % (Auto) Lymph % (Auto) [place] % (Auto) Eos % (Auto) Baso % (Auto) Neut # (Auto) Lymph # (Auto) [place] # (Auto) Eos # (Auto) Baso # (Auto) Neutrophils % (Manual) Band Neutrophils % Lymphocytes % (Manual) Monocytes % (Manual) Platelet Estimate RBC Morphology Sodium 144 Potassium 3.4 L Chloride 108 H Carbon Dioxide 24 Anion Gap 15 BUN 10 Creatinine 1.1 Est GFR ( Amer) > 60 Est GFR (Non-Af Amer) > 60 Random Glucose 98 Lactic Acid Calcium 8.3 L Total Bilirubin 0.4 AST 70 H D ALT 40 Alkaline Phosphatase 63 Total Protein 6.3 Albumin 3.8 Globulin 2.6 Albumin/Globulin Ratio 1.5 Procalcitonin HIV 1&2 Antibody Screen Influenza Typ A,B (EIA) H.influenzae Type B Ag N.meningitidis ACY/W135 N.meningi B/E.coli K1 Ag Grp A Beta Strep Ag Group B Strep Antigen S. pneumoniae Antigen Assessment & Plan (1) Seizures Status: Acute Priority: High (2) Leukocytosis Status: Acute (3) Sepsis Status: Acute Priority: High - Assessment and Plan (Free Text) Plan: Neuro eval sepsis eval follow up titers start Iv antibuiotics start Keppra hydrate ICU.
--- NOTE | 2018-05-18 11:08 | CP.PCM.PN ---
Subjective - Date & Time of Evaluation Date of Evaluation: 05/18/18 Time of Evaluation: 10:00 - Subjective Subjective: Patient feels a lot better Has better appetite Noted to be positive for Inf B Afebrile WBC is now normal. Objective - Vital Signs/Intake and Output Vital Signs (last 24 hours): Temp Pulse Resp BP Pulse Ox 99.0 F 75 19 107/60 99 05/18/18 08:00 05/18/18 09:00 05/18/18 09:00 05/18/18 09:00 05/18/18 09:00 Intake and Output: 05/18/18 05/18/18 06:59 18:59 Intake Total 600 120 Output Total 900 Balance -300 120 - Medications Medications: Current Medications Ceftriaxone Sodium 2 gm/ (Sodium Chloride) 100 mls @ 0 mls/hr IVPB Q12H RY PRN Reason: Protocol Last Admin: 05/18/18 10:12 Dose: 2 mls/hr Levetiracetam (Keppra) 500 mg PO Q12 RY Last Admin: 05/18/18 08:31 Dose: 500 mg Ondansetron HCl (Zofran Inj) 4 mg IVP Q6 PRN PRN Reason: Nausea/Vomiting Last Admin: 05/17/18 14:46 Dose: 4 mg Oseltamivir Phosphate (Tamiflu Cap) 75 mg PO BID RY PRN Reason: Protocol Stop: 05/22/18 17:00 Last Admin: 05/18/18 08:31 Dose: 75 mg Pantoprazole Sodium (Protonix Inj) 40 mg IVP DAILY RY Last Admin: 05/18/18 08:31 Dose: 40 mg - Labs Labs: 05/18/18 04:50 05/18/18 04:50 PT 11.2 Seconds (9.8-13.1) 05/17/18 07:10 INR 1.0 (0.9-1.2) 05/17/18 07:10 APTT 22.9 Seconds (25.6-37.1) L 05/17/18 07:10 - Head Exam Head Exam: NORMAL INSPECTION - Respiratory Exam Respiratory Exam: Clear to Ausculation Bilateral - Cardiovascular Exam Cardiovascular Exam: REGULAR RHYTHM - GI/Abdominal Exam GI & Abdominal Exam: Normal Bowel Sounds - Neurological Exam Neurological Exam: Awake, Oriented x3 Assessment and Plan (1) Seizures Status: Acute (2) Leukocytosis Status: Acute (3) Sepsis Status: Acute (4) Influenza B Status: Acute - Assessment and Plan (Free Text) Plan: Cont meds Cont tx droplet precaution cont meds transfer to reg floor follow up with Neuro may be discharged tomorrow if ok with Neuro.
--- NOTE | 2018-05-18 12:15 | CP.PCM.PN ---
Subjective - Date & Time of Evaluation Date of Evaluation: 05/18/18 Time of Evaluation: 08:00 - Subjective Subjective: afeb less headache no seizures fever negative at bedside rx in progress Objective - Vital Signs/Intake and Output Vital Signs (last 24 hours): Temp Pulse Resp BP Pulse Ox 99.0 F 69 17 96/53 L 98 05/18/18 08:00 05/18/18 10:00 05/18/18 10:00 05/18/18 10:00 05/18/18 10:00 Intake and Output: 05/18/18 05/18/18 06:59 18:59 Intake Total 600 120 Output Total 900 Balance -300 120 - Medications Medications: Current Medications Ceftriaxone Sodium 2 gm/ (Sodium Chloride) 100 mls @ 0 mls/hr IVPB Q12H RY PRN Reason: Protocol Last Admin: 05/18/18 10:12 Dose: 2 mls/hr Levetiracetam (Keppra) 500 mg PO Q12 RY Last Admin: 05/18/18 08:31 Dose: 500 mg Ondansetron HCl (Zofran Inj) 4 mg IVP Q6 PRN PRN Reason: Nausea/Vomiting Last Admin: 05/17/18 14:46 Dose: 4 mg Oseltamivir Phosphate (Tamiflu Cap) 75 mg PO BID RY PRN Reason: Protocol Stop: 05/22/18 17:00 Last Admin: 05/18/18 08:31 Dose: 75 mg Pantoprazole Sodium (Protonix Inj) 40 mg IVP DAILY RY Last Admin: 05/18/18 08:31 Dose: 40 mg - Labs Labs: 05/18/18 04:50 05/18/18 04:50 PT 11.2 Seconds (9.8-13.1) 05/17/18 07:10 INR 1.0 (0.9-1.2) 05/17/18 07:10 APTT 22.9 Seconds (25.6-37.1) L 05/17/18 07:10 - Constitutional Appears: Non-toxic, Chronically Ill - Head Exam Head Exam: NORMOCEPHALIC - Eye Exam Eye Exam: PERRL - ENT Exam ENT Exam: Mucous Membranes Dry - Neck Exam Neck Exam: absent: Lymphadenopathy - Respiratory Exam Respiratory Exam: Decreased Breath Sounds, Clear to Ausculation Bilateral - Cardiovascular Exam Cardiovascular Exam: REGULAR RHYTHM, +S1, +S2 - GI/Abdominal Exam GI & Abdominal Exam: Distended, Soft - Rectal Exam Rectal Exam: Deferred - Exam Exam: NORMAL INSPECTION - Extremities Exam Extremities Exam: absent: Pedal Edema - Back Exam Back Exam: absent: CVA tenderness (L), CVA tenderness (R) - Neurological Exam Neurological Exam: Alert, Awake, Oriented x3 - Psychiatric Exam Psychiatric exam: Depressed - Skin Skin Exam: Dry Assessment and Plan (1) Fever Status: Acute (2) Seizures Status: Acute (3) Sepsis Status: Acute - Assessment and Plan (Free Text) Assessment: oseltamavir ordered iv rocephin in progress await cultures neuroo on board
--- NOTE | 2018-05-18 17:54 | CON ---
DATE: 05/18/2018 CHIEF COMPLAINT: Seizures. HISTORY OF PRESENTING ILLNESS: This is a 37-year-old man with history of seizures of 11 years on Tegretol, ran out of Tegretol for a week and witnessed tonic-clonic event while he was in bed and sometime by urinary incontinence. He has not had a seizure otherwise for the past four years. He has tried Keppra in the past, which has been stable. We have ordered Keppra and he was monitored in the ICU. He also has influenza and is on Tamiflu. Currently, no further seizures while he has been in the unit. He is on Keppra 500 mg p.o. every 12 hours and doing well. No acute events overnight. PAST MEDICAL HISTORY: History of seizure disorder since 13 years old. PAST SURGICAL HISTORY: None. SOCIAL HISTORY: No illicit drug abuse, smoking, or EtOH abuse. FAMILY HISTORY: Noncontributory. MEDICATIONS: Reviewed by nurse reconciliation sheet. ALLERGIES: NO KNOWN DRUG ALLERGIES. LABORATORY DATA: Positive for influenza type B. Sodium is 144, potassium 3.4, chloride of 108, carbon dioxide of 24, BUN of 10, creatinine 1.1, random glucose 98. PHYSICAL EXAMINATION: VITAL SIGNS: Temperature 98.4, pulse rate 60, blood pressure 161/71, respiratory rate 16, oxygen saturation 99% on room air. GENERAL: The patient is sitting up in bed, in no acute distress. HEENT: Atraumatic, normocephalic. PERRLA. Extraocular muscles are intact. NECK: Supple. No JVD. No adenopathy noted. LUNGS: Clear to auscultation. No adventitious sounds. HEART: S1 and S2, normal rate and rhythm. No murmur, rubs, or gallops. ABDOMEN: Soft, nontender, nondistended. Bowel sounds are present. EXTREMITIES: No clubbing. No cyanosis. Peripheral pulses are 2+ bilaterally. NEUROLOGIC: The patient is alert and oriented to person, place, month, and year. Speech is fluent without any errors. Cranial nerves II through XII are intact. Motor exam: Moves all extremities equally. Toes are downgoing bilaterally. Sensory exam: Light touch, pinprick, proprioception and, vibration are intact. DTRs are 2+ throughout. Coordination: [id number]-[id number]-fsob intact. Gait is deferred for now. ASSESSMENT AND PLAN: This is a 37-year-old man with past medical history of seizure disorder for 11 years, on Tegretol, who had episodes of witnessed tonic-clonic seizure while in bed and had urinary incontinence because he ran out of his Tegretol for one week and has not had a seizure since then for the past five years. He is status post status epilepticus secondary to noncompliance with medication. At this time, we will recommend to continue with Keppra 500 mg IV every 12 hours and to continue with Tamiflu for his influenza type B flu since they can also lower the seizure threshold. At this time, continue with IDs recommendation in regards to his flu. Continue present medical management and followup as an outpatient. Thank you for this consult. Sam Galvan MD
[2018-05-19 06:16] LABS: HEMOGLOBIN 14.2 g/dL (12.0-18.0); MEAN CELL VOLUME 91.3 fl (80.0-94.0); MEAN CORPUSCULAR HEMOGLOBIN 31.1 pg (27.0-31.0); RBC 4.56 Mil/uL (4.40-5.90); WHITE BLOOD COUNT 8.4 K/uL (4.8-10.8)
[2018-05-19 06:38] LABS: BLOOD UREA NITROGEN 15 mg/dl (9-20); CALCIUM 8.9 mg/dL (8.4-10.2); GFR AFRICAN-AMERICAN > 60; GFR NON-AFRICAN AMERICAN > 60
[2018-05-19] MEDS: cefTRIAXone 2 GM in Sodium Chloride 0.9% 100 ML IVPB SCH (10:14)
--- NOTE | 2018-05-19 11:37 | CP.PCM.DIS ---
Provider - Provider Date of Admission: 05/17/18 06:45 Attending physician: Keanu Armas MD Primary care physician: Luis Weiss MD Time Spent in preparation of Discharge (in minutes): 30 Diagnosis - Discharge Diagnosis (1) Seizures Status: Acute Priority: High (2) Influenza B Status: Acute Hospital Course - Lab Results Lab Results: Micro Results 05/17/18 07:28 Blood-Venous Blood Culture - Preliminary NO GROWTH AFTER 48 HOURS 05/17/18 06:55 Blood-Venous Blood Culture - Preliminary NO GROWTH AFTER 48 HOURS 05/17/18 10:20 Nose MRSA Culture (Admit) - Final MRSA NOT DETECTED 05/17/18 06:49 Urine Urine Culture - Final No Growth (<1,000 CFU/ML) Most Recent Lab Values WBC 8.4 K/uL (4.8-10.8) 05/19/18 04:20 RBC 4.56 Mil/uL (4.40-5.90) 05/19/18 04:20 Hgb 14.2 g/dL (12.0-18.0) 05/19/18 04:20 Hct 41.6 % (35.0-51.0) 05/19/18 04:20 MCV 91.3 fl (80.0-94.0) 05/19/18 04:20 MCH 31.1 pg (27.0-31.0) H 05/19/18 04:20 MCHC 34.0 g/dL (33.0-37.0) 05/19/18 04:20 RDW 13.0 % (11.5-14.5) 05/19/18 04:20 Plt Count 209 K/uL (130-400) 05/19/18 04:20 MPV 8.7 fl (7.2-11.7) 05/18/18 04:50 Neut % (Auto) 67.8 % (50.0-75.0) 05/18/18 04:50 Lymph % (Auto) 19.9 % (20.0-40.0) L 05/18/18 04:50 Parmer % (Auto) 11.8 % (0.0-10.0) H 05/18/18 04:50 Eos % (Auto) 0.3 % (0.0-4.0) 05/18/18 04:50 Baso % (Auto) 0.2 % (0.0-2.0) 05/18/18 04:50 Neut # (Auto) 6.4 K/uL (1.8-7.0) 05/18/18 04:50 Lymph # (Auto) 1.9 K/uL (1.0-4.3) 05/18/18 04:50 Parmer # (Auto) 1.1 K/uL (0.0-0.8) H 05/18/18 04:50 Eos # (Auto) 0.0 K/uL (0.0-0.7) 05/18/18 04:50 Baso # (Auto) 0.0 K/uL (0.0-0.2) 05/18/18 04:50 Neutrophils % (Manual) 82 % (42-75) H 05/17/18 11:20 Band Neutrophils % 1 % (0-2) 05/17/18 11:20 Lymphocytes % (Manual) 10 % (20-50) L 05/17/18 11:20 Monocytes % (Manual) 7 % (0-10) 05/17/18 11:20 Platelet Estimate Normal (NORMAL) 05/17/18 11:20 RBC Morphology Normal (NORMAL) 05/17/18 11:20 PT 11.2 Seconds (9.8-13.1) 05/17/18 07:10 INR 1.0 (0.9-1.2) 05/17/18 07:10 APTT 22.9 Seconds (25.6-37.1) L 05/17/18 07:10 pCO2 35 mm/Hg (35-45) 05/17/18 06:06 pO2 78 mm/Hg (80-100) L 05/17/18 06:06 HCO3 15.9 mmol/L (21-28) L 05/17/18 06:06 ABG pH 7.24 (7.35-7.45) L 05/17/18 06:06 ABG Total CO2 16.1 mmol/L (22-28) L 05/17/18 06:06 ABG O2 Saturation 97.4 % (95-98) 05/17/18 06:06 ABG Base Excess -11.4 mmol/L (-2.0-3.0) L 05/17/18 06:06 Eder Test Yes 05/17/18 06:06 ABG Potassium 3.7 mmol/L (3.6-5.2) 05/17/18 06:06 A-a O2 Difference 28.0 mm/Hg 05/17/18 06:06 Sodium 139.0 mmol/L (132-148) 05/17/18 06:06 Chloride 108.0 mmol/L (98-107) H 05/17/18 06:06 Glucose 155 mg/dL (75-110) H 05/17/18 06:06 Lactate 5.4 mmol/L (0.7-2.1) H* 05/17/18 06:06 FiO2 21.0 % 05/17/18 06:06 Crit Value Called To Dr crystal gonzales 05/17/18 06:06 Crit Value Called By Mitch 05/17/18 06:06 Crit Value Read Back Y 05/17/18 06:06 Blood Gas Notified Time 623 05/17/18 06:06 Sodium 144 mmol/l (132-148) 05/19/18 04:20 Potassium 3.7 MMOL/L (3.6-5.0) 05/19/18 04:20 Chloride 106 mmol/L (98-107) 05/19/18 04:20 Carbon Dioxide 26 mmol/L (22-30) 05/19/18 04:20 Anion Gap 16 (10-20) 05/19/18 04:20 BUN 15 mg/dl (9-20) 05/19/18 04:20 Creatinine 0.9 mg/dl (0.8-1.5) 05/19/18 04:20 Est GFR ( Amer) > 60 05/19/18 04:20 Est GFR (Non-Af Amer) > 60 05/19/18 04:20 Random Glucose 93 mg/dL (75-110) 05/19/18 04:20 Lactic Acid 1.7 MMOL/L (0.7-2.1) 05/17/18 11:28 Calcium 8.9 mg/dL (8.4-10.2) 05/19/18 04:20 Phosphorus 7.0 mg/dl (2.5-4.5) H 05/17/18 06:55 Magnesium 2.9 MG/DL (1.6-2.3) H 05/17/18 06:55 Total Bilirubin 0.4 mg/dl (0.2-1.3) 05/18/18 04:50 AST 70 U/L (17-59) H D 05/18/18 04:50 ALT 40 U/L (21-72) 05/18/18 04:50 Alkaline Phosphatase 63 U/L (38-126) 05/18/18 04:50 Troponin I < 0.0120 ng/mL (0.00-0.120) 05/17/18 06:55 Total Protein 6.3 G/DL (6.3-8.2) 05/18/18 04:50 Albumin 3.8 g/dL (3.5-5.0) 05/18/18 04:50 Globulin 2.6 gm/dL (2.2-3.9) 05/18/18 04:50 Albumin/Globulin Ratio 1.5 (1.0-2.1) 05/18/18 04:50 Procalcitonin 0.31 NG/ML (0.19-0.49) 05/17/18 11:28 Arterial Blood Potassium 3.7 mmol/L (3.6-5.2) 05/17/18 06:06 Urine Color Straw (YELLOW) 05/17/18 06:49 Urine Clarity Slighty-cloudy (Clear) 05/17/18 06:49 Urine pH 5.0 (5.0-8.0) 05/17/18 06:49 Ur Specific [place] 1.012 (1.003-1.030) 05/17/18 06:49 Urine Protein 30 mg/dL (NEGATIVE) 05/17/18 06:49 Urine Glucose (UA) 50 mg/dL (Normal) 05/17/18 06:49 Urine Ketones Negative mg/dL (NEGATIVE) 05/17/18 06:49 Urine Blood Moderate (NEGATIVE) 05/17/18 06:49 Urine Nitrate Negative (NEGATIVE) 05/17/18 06:49 Urine Bilirubin Negative (NEGATIVE) 05/17/18 06:49 Urine Urobilinogen 0.2-1.0 mg/dL (0.2-1.0) 05/17/18 06:49 Ur Leukocyte Esterase Neg Jarrod/uL (Negative) 05/17/18 06:49 Urine RBC (Auto) < 1 /hpf (0-3) 05/17/18 06:49 Urine Microscopic WBC < 1 /hpf (0-5) 05/17/18 06:49 Ur Squamous Epith Cells < 1 /hpf (0-5) 05/17/18 06:49 Urine Opiates Screen Negative (NEGATIVE) 05/17/18 06:49 Urine Methadone Screen Negative (NEGATIVE) 05/17/18 06:49 Ur Barbiturates Screen Negative (NEGATIVE) 05/17/18 06:49 Carbamazepine < 3.0 ug/mL (4.0-12.0) L 05/17/18 05:11 Ur Phencyclidine Scrn Negative (NEGATIVE) 05/17/18 06:49 Ur Amphetamines Screen Negative (NEGATIVE) 05/17/18 06:49 U Benzodiazepines Scrn Negative (NEGATIVE) 05/17/18 06:49 U Oth Cocaine Metabols Negative (NEGATIVE) 05/17/18 06:49 U Cannabinoids Screen Negative (NEGATIVE) 05/17/18 06:49 Alcohol, Quantitative < 10 mg/dl (0-10) 05/17/18 06:55 HIV 1&2 Antibody Screen Negative (NEGATIVE) 05/17/18 11:28 Influenza Typ A,B (EIA) Pos for influenza b (NEGATIVE) H 05/17/18 11:30 H.influenzae Type B Ag Negative (NEGATIVE) 05/17/18 11:28 N.meningitidis ACY/W135 Negative (NEGATIVE) 05/17/18 11:28 N.meningi B/E.coli K1 Ag Negative (NEGATIVE) 05/17/18 11:28 Grp A Beta Strep Ag Negative (NEGATIVE) 05/17/18 11:30 Group B Strep Antigen Negative (NEGATIVE) 05/17/18 11:28 S. pneumoniae Antigen Negative (NEGATIVE) 05/17/18 11:28 - Hospital Course Hospital Course: 37 yo M with hx seizure disorder presented to ED after witnessed seizure during which he bit his tongue and was incontinent. He had been taking tegretol for years, and ran out of his medication- had not taken it in 1 week. Keppra was started, and pt has not had any seizures since admission. He was found to have elevated wbc and was treated empirically with rocephin; blood/urine cultures have been negative. He was also found to be positive for influenza B, and tamiflu was started. Neuro evaluated pt - continue keppra 500 Q12, EEG and f/u outpatient. Pt seen this am with Dr. Armas - in good spirits, no acute events. States he has private neurologist but does not remember his name. Pt will be d/c on remaining dose of tamiflu (3 days), and prescriptions for Keppra 500 Q12 hours and EEG. He will follow up with his PMD Dr. Parish Weiss within 1 week, and with his neurologist as well. Discharge Exam - Head Exam Head Exam: NORMOCEPHALIC - Eye Exam Eye Exam: Normal appearance - ENT Exam ENT Exam: Mucous Membranes Moist - Respiratory Exam Respiratory Exam: NORMAL BREATHING PATTERN - Cardiovascular Exam Cardiovascular Exam: REGULAR RHYTHM - Extremities Exam Extremities exam: normal inspection - Neurological Exam Neurological exam: Alert Additional comments: speech normal, moving all 4 extremities spontaneously - Psychiatric Exam Psychiatric exam: Normal Mood Discharge Plan - Follow Up Plan Condition: GUARDED Disposition: HOME/ ROUTINE Instructions: Flu, Adult (DC), Seizures, Adult (DC) Additional Instructions: Please fill prescriptions for Keppra and Tamiflu and take as directed. Please follow up with PMD Dr. Weiss within 1 week. Call [phone] to schedule EEG, paper prescription given to bring to appointment. Return to ED with any new seizures, confusion, acute changes. Referrals: Luis Weiss MD [Primary Care Provider] -
[2018-05-19 12:13] VITALS: BP 127/59; PULSE 87; RESP 13; TEMP 98.6
--- NOTE | 2018-05-19 12:15 | CP.PCM.PN ---
Subjective - Date & Time of Evaluation Date of Evaluation: 05/19/18 Time of Evaluation: 07:00 - Subjective Subjective: improving awake alert afebrile Objective - Vital Signs/Intake and Output Vital Signs (last 24 hours): Temp Pulse Resp BP Pulse Ox 98.6 F 87 13 127/59 L 100 05/19/18 12:00 05/19/18 12:00 05/19/18 12:00 05/19/18 12:00 05/19/18 12:00 Intake and Output: 05/19/18 05/19/18 06:59 18:59 Intake Total 200 120 Output Total 1300 Balance -1100 120 - Medications Medications: Current Medications Ceftriaxone Sodium 2 gm/ (Sodium Chloride) 100 mls @ 0 mls/hr IVPB Q12H RY PRN Reason: Protocol Last Admin: 05/19/18 10:14 Dose: 100 mls/hr Levetiracetam (Keppra) 500 mg PO Q12 RY Last Admin: 05/19/18 08:20 Dose: 500 mg Ondansetron HCl (Zofran Inj) 4 mg IVP Q6 PRN PRN Reason: Nausea/Vomiting Last Admin: 05/17/18 14:46 Dose: 4 mg Oseltamivir Phosphate (Tamiflu Cap) 75 mg PO BID RY PRN Reason: Protocol Stop: 05/22/18 17:00 Last Admin: 05/19/18 08:20 Dose: 75 mg Pantoprazole Sodium (Protonix Inj) 40 mg IVP DAILY RY Last Admin: 05/19/18 08:21 Dose: 40 mg - Labs Labs: 05/19/18 04:20 05/19/18 04:20 PT 11.2 Seconds (9.8-13.1) 05/17/18 07:10 INR 1.0 (0.9-1.2) 05/17/18 07:10 APTT 22.9 Seconds (25.6-37.1) L 05/17/18 07:10 - Constitutional Appears: Well - Head Exam Head Exam: ATRAUMATIC, NORMAL INSPECTION, NORMOCEPHALIC - Eye Exam Eye Exam: EOMI, Normal appearance, PERRL Pupil Exam: NORMAL ACCOMODATION, PERRL - ENT Exam ENT Exam: Mucous Membranes Moist, Normal Exam - Neck Exam Neck Exam: Full ROM, Normal Inspection. absent: Lymphadenopathy - Respiratory Exam Respiratory Exam: Clear to Ausculation Bilateral, NORMAL BREATHING PATTERN - Cardiovascular Exam Cardiovascular Exam: REGULAR RHYTHM, +S1, +S2. absent: Murmur - GI/Abdominal Exam GI & Abdominal Exam: Soft, Normal Bowel Sounds. absent: Tenderness - Rectal Exam Rectal Exam: NORMAL INSPECTION - Exam Exam: Circumcision, NORMAL INSPECTION External exam: NORMAL EXTERNAL EXAM Speculum exam: NORMAL SPECULUM EXAM Bimanual exam: NORMAL BIMANUAL EXAM - Extremities Exam Extremities Exam: Full ROM, Normal Capillary Refill, Normal Inspection. absent : Joint Swelling, Pedal Edema - Back Exam Back Exam: NORMAL INSPECTION - Neurological Exam Neurological Exam: Alert, Awake, CN II-XII Intact, Normal Gait, Oriented x3 - Psychiatric Exam Psychiatric exam: Normal Affect, Normal Mood - Skin Skin Exam: Dry, Intact, Normal Color, Warm Assessment and Plan (1) Fever Status: Acute (2) Seizures Status: Acute (3) Sepsis Status: Acute - Assessment and Plan (Free Text) Assessment: d/c on tamiflu and antiseizure meds folllow up dr horowitz
[2018-05-20 09:38] VITALS: O2SAT 98
== END 2018-05-19 16:00 | disposition home or self-care (01) | DRG 532 ==
LOC: H.ER 04:42 → H.ERHOLD 06:45 → H.ICU/CCU 09:07
PROVIDERS: ADMIT Family Medicine; ATTEND Family Medicine
DX: G40.901 Epilepsy, unspecified, not intractable, with status epilepticus (principal); A41.9 Sepsis, unspecified organism; E87.2 Acidosis; E87.0 Hyperosmolality and hypernatremia; E86.0 Dehydration; R73.9 Hyperglycemia, unspecified; J10.1 Influenza due to other identified influenza virus with other respiratory manifestations; G93.40 Encephalopathy, unspecified; Z91.14 Patient's other noncompliance with medication regimen